=== PATIENT | female | born 1980 | race Caucasian/White ===

== ENCOUNTER 2016-10-17 07:52 | Emergency (ER) | payer MEDICAID, OTHER ==
[2016-10-17] MEDS ORDERED: IPRATROPIUM/ALBUTEROL 0.5-2.5 MG/3 ML AMPUL NEB ONE ×2 (08:19→08:24)
[2016-10-17] MEDS ORDERED: ALBUTEROL SULFATE 0.083% NEB 2.5 MG/3 ML AMPUL NEB SCH (08:39)
--- NOTE | 2016-10-17 09:22 | ER Document Report ---
ED General - General Chief Complaint: Cold Symptoms Stated Complaint: SHORTNESS OF BREATH TRAVEL OUTSIDE OF THE [place] IN LAST 30 DAYS: No - Related Data Allergies/Adverse Reactions: morphine Adverse Reaction (Verified 10/17/16 08:28) nausea/vomiting Past Medical History - Social History Smoking Status: Current Every Day Smoker Chew tobacco use (# tins/day): Yes Family History: Reviewed & Not Pertinent Patient has suicidal ideation: No Patient has homicidal ideation: No Pulmonary Medical History: Reports: Hx Asthma Renal/ Medical History: Denies: Hx Peritoneal Dialysis Psychiatric Medical History: Reports: Hx Anxiety Past Surgical History: Reports: Hx Mastectomy - double - Immunizations Immunizations up to date: Yes Physical Exam - Vital signs Vitals: Temp Pulse Resp BP Pulse Ox 98.5 F 114 H 22 H 96/56 L 93 10/17/16 07:56 10/17/16 07:56 10/17/16 07:56 10/17/16 07:56 10/17/16 07:56 Course - Re-evaluation Re-evalutation: 10/17/16 09:19 Patient requests refill of her albuterol, I will dc her home at this time since she feels much better and is in no distress After performing a Medical Screening Examination, I estimate there is LOW risk for ACUTE CORONARY SYNDROME, RESPIRATORY FAILURE, SEPSIS OR MENINGITIS, thus I consider the discharge disposition reasonable. The patient and I have discussed the diagnosis and risks, and we agree with discharging home with close follow- up. We also discussed returning to the Emergency Department immediately if new or worsening symptoms occur. We have discussed the symptoms which are most concerning (e.g., changing or worsening pain, trouble swallowing or breathing, neck stiffness, fever) that necessitate immediate return. - Vital Signs Vital signs: Temp Pulse Resp BP Pulse Ox 98.5 F 94 18 99/61 L 95 10/17/16 07:56 10/17/16 09:26 10/17/16 09:26 10/17/16 09:26 10/17/16 09:26 - Diagnostic Test Radiology reviewed: Image reviewed, Reports reviewed Discharge - Discharge Clinical Impression: SOB (shortness of breath) Asthma Qualifiers: Asthma severity: mild intermittent Asthma complication type: with acute exacerbation Qualified Code(s): J45.21 - Mild intermittent asthma with (acute) exacerbation Condition: Stable Disposition: HOME, SELF-CARE Instructions: Asthma (OM) Prescriptions: Albuterol Sulfate [Albuterol Sulfate 2.5mg/3 mL] 2.5 mg IH Q4 40 Days Ipratropium/Albuterol Sulfate [Duoneb 3 ml Ampul] 3 ml NEB RTQ8 #30 vial.neb Prednisone [Deltasone 20 mg Tablet] 3 tab PO DAILY 5 Days Forms: Return to Work Referrals: RYAN JAMISON, [facility] [Primary Care Provider] - Follow up in 3-5 days
[2016-10-17 09:27] VITALS: BP 99/61
== END 2016-10-17 09:33 | disposition home or self-care (01) ==
LOC: ER 07:52
DX: J45.21 Mild intermittent asthma with (acute) exacerbation (principal); J44.9 Chronic obstructive pulmonary disease, unspecified; R06.02 Shortness of breath; R05 Cough; F17.200 Nicotine dependence, unspecified, uncomplicated
CPT/HCPCS: 94640; 99283; 71010; J7620

== ENCOUNTER 2016-10-17 14:06 | Emergency (ER) | payer MEDICAID ==
[2016-10-17] MEDS ORDERED: NORMAL SALINE 1000 ML 1,000 ML IV ONE (14:38)
[2016-10-17] MEDS ORDERED: ONDANSETRON HCL INJ/PF 4 MG/2 ML SDV IV ONE (14:38)
[2016-10-17] MEDS: ALBUTEROL SULFATE 0.083% NEB 2.5 MG/3 ML AMPUL NEB SCH ×2 (14:49→15:13)
--- NOTE | 2016-10-17 15:11 | ER Document Report ---
ED General - General Chief Complaint: Asthma Exacerbation Stated Complaint: DIFFICULTY BREATHIN Time seen by provider: 14:30 Mode of Arrival: Medic Information source: Patient Notes: 28-year-old female with 3 day history of nonproductive cough and worsening wheezing that he says is typical for her asthma. She reports sharp bilateral mid back pain that she thinks is related to her breathing. Patient seen in her from earlier today to with nebulizers with improvement in discharge with saturation of 95% on room air. Patient was given a prescription for steroids for prior to filling it says her breathing became much worse again she was found by EMS personnel have a saturation of 80% on room air. She reports feeling somewhat better now after additional nebulizer treatment and IV steroids in route to the breathing doesn't feel back to normal. She thinks she may have been intubated once as a child for asthma and has had prior admissions for asthma but none recently. She reports intermittent nausea but denies vomiting, diarrhea, abdominal pain, or sore throat. She does report right ear pain for the past 2 days. Physical Exam: General: Alert, moderately store Tory distress tachypnea, HEENT: Normocephalic. Atraumatic. PERRLA. Extraocular movements intact. Panic membranes and canals clear Oropharynx clear. Neck: Supple. Non-tender. Respiratory: Moderate respiratory distress. Wheezes throughout all lung herbert breath sounds equal tachypnea minimal accessory muscle use Cardiovascular: Regular rate and rhythm. Abdominal: Normal Inspection. Soft, non-tender. No distension. Normal Bowel Sounds. Back: Non-tender. No deformity or step off. Extremities: Moves all four extremities. Upper extremities: Normal inspection. Non-tender. Normal color. Normal ROM. Normal temperature. Lower extremities: Normal inspection. Non-tender. No edema. Normal color. Normal ROM. Normal temperature. Neurological the clear mentation normal moves all extremities well Psychological: Normal affect. Normal Mood. Skin: Warm. Dry. Normal color. TRAVEL OUTSIDE OF THE [place] IN LAST 30 DAYS: No - Related Data Allergies/Adverse Reactions: morphine Adverse Reaction (Verified 10/17/16 08:28) nausea/vomiting Past Medical History - Social History Smoking Status: Current Some Day Smoker Family History: Other - Asthma Pulmonary Medical History: Reports: Hx Asthma Renal/ Medical History: Denies: Hx Peritoneal Dialysis Psychiatric Medical History: Reports: Hx Anxiety Past Surgical History: Reports: Hx Mastectomy - double - Immunizations Immunizations up to date: Yes Review of Systems - Review of Systems Constitutional: See HPI EENT: See HPI Cardiovascular: See HPI Respiratory: See HPI Gastrointestinal: denies: Abdominal pain, Diarrhea, Vomiting Genitourinary: denies: Burning, Dysuria Female Genitourinary: denies: Musculoskeletal: See HPI Skin: denies: Rash Hematologic/Lymphatic: denies: Enlarged lymph nodes Neurological/Psychological: denies: Weakness, Numbness Physical Exam - Vital signs Vitals: Resp Pulse Ox 18 97 10/17/16 14:34 10/17/16 14:34 Course - Re-evaluation Re-evalutation: 10/17/16 18:42 After aggressive treatment for patient is [place] difficulty reevaluation shows her to have clear lung herbert bilaterally with heart rate of 110. Patient or has a prescription for prednisone and albuterol. She reports her nebulizer machine was broken and she did not realize that this morning which is why she developed some which respiratory difficulty. We'll provide her with a nebulizer prescription. She also requests pulmonology referral and she will be provided with that. She was also noted CT scan of a 5 mm pulmonary nodule on the right and she is informed of that and that it will need follow-up in 6 months. She [facility] Patient had nonspecific ST changes on her EKG but I don't believe that represents any cardiac problem requiring admission. - Vital Signs Vital signs: Temp Pulse Resp BP Pulse Ox 98.5 F 120 H 20 107/64 96 10/17/16 14:50 10/17/16 14:50 10/17/16 18:01 10/17/16 18:01 10/17/16 18:01 - Laboratory Result Diagrams: 10/17/16 15:15 10/17/16 15:15 Laboratory results interpreted by me: 10/17/16 10/17/16 10/17/16 15:15 15:15 15:15 Hct 35.0 L Seg Neutrophils % 84.7 H Lymphocytes % 11.2 L Absolute Neutrophils 8.7 H D-Dimer 0.84 H Potassium 3.5 L Glucose 146 H AST 38 H - Diagnostic Test Radiology reviewed: Image reviewed, Reports reviewed - EKG Interpretation by Me Additional EKG results interpreted by me: 10/17/16 15:11 EKG reviewed by myself shows sinus tachycardia [address] changes Discharge - Discharge Clinical Impression: Pulmonary nodule, right Acute asthma exacerbation Qualifiers: Asthma severity: unspecified severity Qualified Code(s): J45.901 - Unspecified asthma with (acute) exacerbation Condition: Stable Disposition: HOME, SELF-CARE Additional Instructions: Pulmonology MD Edmond Cabrera MD [address] Asthma You have been diagnosed as having asthma. This is a condition where there is episodic tightness in the bronchial tubes. Allergies, infections, and polluted or cold air may be contributing factors. Emergency treatment of a severe asthma attack may include adrenaline shots , or bronchodilator aerosol. You may feel lightheaded, have a decreased exercise tolerance and a rapid pulse for an hour or two. Rest and get plenty of fluids. Home treatment of asthma requires bronchodilator drugs. These can be administered by injection, inhalation, or by mouth. Antibiotics and corticosteroids may be required for some patients. You should avoid chemical fumes, dusts, pollens, and exercising in very cold or dry air. If you smoke, stop!! If you develop a fever, increased wheezing, chest pain, or severe shortness of breath, you should contact the doctor immediately You have a 5 mm nodule in your right lung seen on CT scan. This needs to be checked with a repeat chest x-ray in 6 months. Prescriptions: Nebulizer [Nebulizer Machine] 1 each ASDIR PRN #1 kit PRN Reason: Referrals: [facility] [Provider Group] - 10/18/16
[2016-10-17] MEDS: MAGNESIUM SULFATE/D5W 100 ML IV SCH ×2 (15:14→18:01)
[2016-10-17 15:32] LABS: ABSOLUTE LYMPHOCYTES (AUTO) 1.1 10^3/uL (0.5-4.7); ABSOLUTE MONOCYTES (AUTO) 0.4 10^3/uL (0.1-1.4); ABSOLUTE NEUT (AUTO) 8.7 10^3/uL (1.7-8.2); BASOPHILS % (AUTO) 0.2 % (0-2); LYMPHOCYTES % (AUTO) 11.2 % (13-45); MEAN CORPUSCULAR HGB CONC 34.3 g/dL (32.0-36.0); MEAN CORPUSCULAR VOLUME 90 fl (80-97); MONOCYTES % (AUTO) 3.9 % (3-13); RED BLOOD COUNT 3.87 10^6/uL (3.72-5.28); RED CELL DISTRIBUTION WIDTH 13.9 % (11.5-14.0); SEGMENTED NEUTROPHILS % (AUTO) 84.7 % (42-78); WHITE BLOOD COUNT 10.2 10^3/uL (4.0-10.5)
[2016-10-17 15:50] LABS: ALANINE AMINOTRANSFERASE 38 U/L (9-52); ALBUMIN 4.2 g/dL (3.5-5.0); ALKALINE PHOSPHATASE 94 U/L (38-126); ANION GAP 13 (5-19); ASPARTATE AMINO TRANSFERASE 38 U/L (14-36); BILIRUBIN,TOTAL 0.4 mg/dL (0.2-1.3); BLOOD UREA NITROGEN 9 mg/dL (7-20); CARBON DIOXIDE 22 mmol/L (22-30); CHLORIDE 105 mmol/L (98-107); CREATINE KINASE 60 U/L (30-135); CREATININE RESULT 0.62 mg/dL (0.52-1.25); GLUCOSE 146 mg/dL (75-110); POTASSIUM 3.5 mmol/L (3.6-5.0); SODIUM 139.9 mmol/L (137-145)
[2016-10-17 16:04] LABS: CREATINE KINASE MB < 0.22 ng/mL (<4.55); TROPONIN I < 0.012 ng/mL
[2016-10-17] MEDS ORDERED: IPRATROPIUM/ALBUTEROL 0.5-2.5 MG/3 ML AMPUL NEB ONE (18:09)
[2016-10-17 20:04] VITALS: BP 97/61
--- NOTE | 2016-10-17 22:03 | EKG REPORT ---
SEVERITY:- OTHERWISE NORMAL ECG - SINUS TACHYCARDIA : Confirmed by: Alyx Sauer MD 17-Oct-2016 22:02:59
[2016-10-17] MEDS ORDERED: MAGNESIUM SULFATE/D5W 2 GM/200 ML RTUPB IV ONE (22:05)
[2016-10-17] MEDS ORDERED: METHYLPREDNISOLONE INJ 125 MG/2 ML SDV ONE (22:05)
--- NOTE | 2016-10-19 08:19 | EKG REPORT ---
SEVERITY:- ABNORMAL ECG - SINUS TACHYCARDIA BORDERLINE RIGHT AXIS DEVIATION LOW VOLTAGE IN FRONTAL LEADS NONSPECIFIC REPOL ABNORMALITY, DIFFUSE LEADS : Confirmed by: Alyx Sauer MD 19-Oct-2016 08:18:49
== END 2016-10-17 20:04 | disposition home or self-care (01) ==
LOC: ER 14:06
DX: J45.901 Unspecified asthma with (acute) exacerbation (principal); R91.1 Solitary pulmonary nodule; R05 Cough; M54.89 Other dorsalgia; R11.0 Nausea; H92.01 Otalgia, right ear; R00.0 Tachycardia, unspecified; F17.200 Nicotine dependence, unspecified, uncomplicated
CPT/HCPCS: 93005; 94640 ×2; 99285; 96375; 96365; 96366; 36415; 82553; 82550; 84703; 85025; 80053; 84484; 85379; 71275; 93010; J3475; J2405; J7030; J7620

== ENCOUNTER 2016-10-17 21:50 | Inpatient (IN) | payer MEDICAID ==
[2016-10-17] MEDS ORDERED: METHYLPREDNISOLONE INJ 125 MG/2 ML SDV IV ONE (21:51)
[2016-10-17] MEDS ORDERED: IPRATROPIUM/ALBUTEROL 0.5-2.5 MG/3 ML AMPUL NEB ONE (21:51)
--- NOTE | 2016-10-17 21:54 | ER Document Report ---
ED Medical Screen (RME) - General Stated Complaint: DIFFICULTY BREATHING Mode of Arrival: Wheelchair Information source: Patient Notes: Patient presents with labored respirations complain of asthma attack. Patient states she was seen earlier today for same symptoms. Patient with tight wheezing bilaterally, patient tachypnea, with labored respirations. hx: Asthma I have greeted and performed a rapid initial assessment of this patient. A comprehensive ED assessment and evaluation of the patient, analysis of test results and completion of the medical decision making process will be conducted by additional ED providers. TRAVEL OUTSIDE OF THE [place] IN LAST 30 DAYS: No - Related Data Allergies/Adverse Reactions: morphine Adverse Reaction (Verified 10/17/16 08:28) nausea/vomiting Past Medical History Pulmonary Medical History: Reports: Hx Asthma Renal/ Medical History: Denies: Hx Peritoneal Dialysis Psychiatric Medical History: Reports: Hx Anxiety Past Surgical History: Reports: Hx Mastectomy - double - Immunizations Immunizations up to date: Yes Physical Exam - Respiratory Respiratory status: Labored, Tachypnea Breath sounds: Nonproductive cough, Wheezing Course - Re-evaluation Re-evalutation: 10/17/16 21:53 microbial specialist advised of status, patient brought back to room directly.
[2016-10-17] MEDS ORDERED: ALBUTEROL SULFATE 0.083% NEB 2.5 MG/3 ML AMPUL NEB SCH (22:07)
[2016-10-17 22:26] LABS: HEMATOCRIT 35.4 % (36.0-47.0); HEMOGLOBIN 12.2 g/dL (12.0-15.5); HGB HCT DIFFERENCE 1.2; MEAN CORPUSCULAR HEMOGLOBIN 31.3 pg (27.0-33.4); MEAN CORPUSCULAR HGB CONC 34.5 g/dL (32.0-36.0); MEAN CORPUSCULAR VOLUME 91 fl (80-97); RED CELL DISTRIBUTION WIDTH 14.5 % (11.5-14.0); WHITE BLOOD COUNT 9.2 10^3/uL (4.0-10.5)
--- NOTE | 2016-10-17 22:45 | ER Document Report ---
ED Respiratory Problem - General Mode of Arrival: Wheelchair Information source: Patient TRAVEL OUTSIDE OF THE [place] IN LAST 30 DAYS: No - HPI Patient complains to provider of: Short of breath Associated symptoms: Other - See above <CHANTELLE BLANDON - Last Filed: 10/17/16 23:58> <SUZY CLEMENT - Last Filed: 10/18/16 01:35> - General Chief Complaint: Breathing Difficulty Stated Complaint: DIFFICULTY BREATHING Notes: Patient is a 36 year old female, with a past medical history including asthma, who presents to the emergency department with her complaining of difficulty breathing. Patient reports that she started having shortness of breath 2 days ago and has been worsening. Patient has been using her regular Albuterol and Nebulizer treatments at home with no relief. Patient reports that her last doctors visit was 6 months ago and that she was admitted 1 to 2 times as a child. Per patient has been more restless at night. Patient has a history of anxiety and takes 3 1mg tables of Ativan per day, patient reports she has taken one dose today. Patient states that this could be related to her anxiety. Patient was seen at this facility twice today for the same complaint. (CHANTELLE BLANDON) - Related Data Allergies/Adverse Reactions: morphine Adverse Reaction (Verified 10/17/16 08:28) nausea/vomiting Past Medical History - General Information source: Patient - Social History Smoking Status: Current Some Day Smoker Family History: Reviewed & Not Pertinent, Other - Asthma Pulmonary Medical History: Reports: Hx Asthma Psychiatric Medical History: Reports: Hx Anxiety Past Surgical History: Reports: Hx Mastectomy - double - Immunizations Immunizations up to date: Yes <CHANTELLE BLANDON - Last Filed: 10/17/16 23:58> Review of Systems - Review of Systems Constitutional: No symptoms reported EENT: No symptoms reported Cardiovascular: No symptoms reported Respiratory: See HPI, Short of breath Gastrointestinal: No symptoms reported Genitourinary: No symptoms reported Female Genitourinary: No symptoms reported Musculoskeletal: No symptoms reported Skin: No symptoms reported Hematologic/Lymphatic: No symptoms reported Neurological/Psychological: No symptoms reported -: Yes All other systems reviewed and negative <CHANTELLE BLANDON - Last Filed: 10/17/16 23:58> Physical Exam - Vital signs Interpretation: Normal - General General appearance: Alert - HEENT Head: Normocephalic, Atraumatic - Respiratory Respiratory status: No respiratory distress Chest status: Nontender Breath sounds: Decreased air movement, Wheezing - tight expiratory wheezes Chest palpation: Normal - Cardiovascular Rhythm: Regular Heart sounds: Normal auscultation Murmur: No - Back Back: Normal, Nontender - Extremities General upper extremity: Normal inspection General lower extremity: Normal inspection - Neurological Neuro grossly intact: Yes Cognition: Normal Orientation: AAOx4 Milena Coma Scale Eye Opening: Spontaneous Milena Coma Scale Verbal: Oriented Milena Coma Scale Motor: Obeys Commands Milena Coma Scale Total: 15 Speech: Normal - Psychological Associated symptoms: Normal affect, Normal mood - Skin Skin Temperature: Warm Skin Moisture: Dry Skin Color: Normal <CHANTELLE BLANDON - Last Filed: 10/17/16 23:58> Course - Laboratory Result Diagrams: 10/17/16 22:01 10/17/16 22:54 <CHANTELLE BLANDON - Last Filed: 10/17/16 23:58> - Laboratory Result Diagrams: 10/17/16 22:01 10/17/16 22:54 <SUZY CLEMENT - Last Filed: 10/18/16 01:35> - Re-evaluation Re-evalutation: 10/17/16 23:59 I personally performed the services described in the documentation, reviewed and edited the documentation which was dictated to my scribe in my presence, and it accurately records my words and actions. presents emergency Department with difficulty breathing wheezing history of asthma. Patient is actually been seen and evaluated and discharged twice today. She was initially seen earlier this morning diagnosed with asthma exacerbation cold symptoms. She was sent home on albuterol. She said her nebulizer machine was broken at home. She came back and was again reassessed note shows that per EMS her O2 sat was 80% patient was aggressively treated here with Solu-Medrol magnesium and breathing treatments at which her symptoms resolved and she was discharged from the department they stated they got home doing okay for a few hours and then it recurred. Patient presents to the triage area and severe shortness of breath tight with expiratory wheezing and O2 sat of 88% on room air. Patient was given albuterol Atrovent here does not need repeat dosing of Solu-Medrol on my examination resolved wheezing and respiratory distress after one breathing treatment reassess her multiple times no acute respiratory distress resting comfortably. Pulse oxing well. Patient third visit to the ER asthma exacerbation used to be admitted for observation. Contacted Dr. Bassett at [phone] he stated he is unable to take any new patients. Dr. Bassett contacted me back at [phone] accepting the patient telemetry admission 10/18/16 01:34 (SUZY CLEMENT) - Vital Signs Vital signs: Temp Pulse Resp BP Pulse Ox 28 H 102/79 96 10/18/16 00:00 10/17/16 22:02 10/18/16 00:00 - Laboratory Laboratory results interpreted by me: 10/17/16 10/17/16 10/17/16 22:01 22:25 22:54 Hct 35.4 L RDW 14.5 H Seg Neuts % (Manual) 95 H Lymphocytes % (Manual) 5 L Monocytes % (Manual) 0 L Abs Neuts (Manual) 8.7 H Abs Monocytes (Manual) 0.0 L ABG pO2 64.6 L ABG O2 Saturation 92.4 L Carbon Dioxide 19 L Glucose 179 H AST 54 H (SUZY CLEMENT) - EKG Interpretation by Me Additional EKG results interpreted by me: 10/18/16 00:02 EKG sinus tachycardia [address] segment elevation or depression (SUZY CLEMENT) Critical Care Note - Critical Care Note Total time excluding time spent on procedures (mins): 45 <SUZY CLEMENT - Last Filed: 10/18/16 01:35> Discharge <CHANTELLE BLANDON - Last Filed: 10/17/16 23:58> - Discharge Admitting Provider: Hospitalist Unit Admitted: Telemetry <SUZY CLEMENT - Last Filed: 10/18/16 01:35> - Discharge Clinical Impression: Exacerbation of asthma Condition: Stable Disposition: ADMITTED INPATIENT Scribe Documentation - Scribe Written by Mariana:: mariana Bender, 10/17/16, [id number] acting as scribe for :: [place] <CHANTELLE BLANDON - Last Filed: 10/17/16 23:58>
[2016-10-17 22:51] LABS: ARTERIAL BLOOD BASE EXCESS -4.2 mmol/L; ARTERIAL BLOOD O2 SATURATION 92.4 % (94-98)
[2016-10-17 22:52] LABS: BASOPHILS % (MANUAL) 0 % (0-2); EOSINOPHILS % (MANUAL) 0 % (0-6); LYMPHOCYTES % (MANUAL) 5 % (13-45); TOTAL CELLS COUNTED 100
[2016-10-17 22:54] LABS: ANISOCYTOSIS SLIGHT; BURR CELLS SLIGHT; OVALOCYTES SLIGHT; POIKILOCYTOSIS SLIGHT
[2016-10-17 23:43] LABS: ALANINE AMINOTRANSFERASE 51 U/L (9-52); ALBUMIN 3.7 g/dL (3.5-5.0); ALKALINE PHOSPHATASE 90 U/L (38-126); ANION GAP 14 (5-19); ASPARTATE AMINO TRANSFERASE 54 U/L (14-36); BILIRUBIN,TOTAL 0.4 mg/dL (0.2-1.3); BLOOD UREA NITROGEN 7 mg/dL (7-20); CALCIUM 8.7 mg/dL (8.4-10.2); CARBON DIOXIDE 19 mmol/L (22-30); CHLORIDE 107 mmol/L (98-107); CREATINE KINASE 85 U/L (30-135); CREATININE RESULT 0.59 mg/dL (0.52-1.25); GLUCOSE 179 mg/dL (75-110); POTASSIUM 4.2 mmol/L (3.6-5.0); SODIUM 139.8 mmol/L (137-145); TOTAL PROTEIN 7.2 g/dL (6.3-8.2)
[2016-10-17 23:53] LABS: CREATINE KINASE MB 0.53 ng/mL (<4.55)
[2016-10-17 23:54] LABS: TROPONIN I < 0.012 ng/mL
[2016-10-18] MEDS ORDERED: ACETAMINOPHEN 325 MG TABLET PO PRN (02:47)
[2016-10-18] MEDS ORDERED: NICOTINE 7 MG/24 HR PATCH.TD24 TD PRN (03:06)
--- NOTE | 2016-10-18 03:06 | PDOC H&P ---
History of Present Illness Admission Date/PCP: 10/18/16 02:54 [facility] first urgent care Patient complains of: Difficulty breathing. History of Present Illness: JOEY OG is a 36 year old female with underlying asthma, pack of cigarettes every week, who presents to the emergency room for her third visit in approximately 12 hours, according to , who is present at her side with her approval. Describes a 2 day history of slowly progressive difficulty breathing, despite albuterol nebulizer treatments at home. Reportedly recovered quite nicely during her first 2 emergency room visits, but within several hours after her second visit, breathing difficulty recurred, with hypoxia reported on room air. She's had a dry cough but no nausea and vomiting. Possible fever, but not completely certain. No chills. Mild dysuria. No diarrhea. Chest and abdominal pain only with a cough. No flu vaccination this year. Only one prior intubation for respiratory difficulty, as a child. Patient has been discussed with emergency room physician who evaluated the patient. S/P splenectomy for ITP. Laboratory results are listed in [facility] and are reviewed. X-ray summary results are listed below, with full report(s) reviewed. . EKG reviewed. No prior EKG available for comparison. Social history/personal habits: . 3 children. Retired employee. One pack of cigarettes per week. Rare alcohol. No illicit drug use. Allergies/adverse reactions are listed in [facility] and are reviewed. No problems with oxycodone. Home medications are reviewed by discussion with patient and are to be reconciled by nursing staff in [facility]. Home medications initially autopopulated into [facility] may not accurately reflect patient's true medications, dosages, and/or frequencies. REVIEW OF SYSTEMS: Constitutional: See history and present illness. Eyes: No current vision complaints. ENT: No swallowing problems or complaints. No hearing problems or complaints. Pulmonary: See history and present illness. Cardiovascular: See history and present illness. Gastrointestinal: No current complaints, including nausea or vomiting. Skin: No current complaints, including rashes. Hematologic: Easy bruising. Neurologic: No current complaints, including numbness or tingling. Musculoskeletal: No current complaints, including painful joints. Psychiatric: Mild Anxiety Endocrine: No current complaints, including polyuria. Genitourinary: No current complaints, including dysuria. PHYSICAL EXAMINATION: 5 feet 2 inches tall. 52.2 kg. BMI 21 kg/m. 91% on room air. Respirations are 20 and unlabored. Blood pressure 97/50. Pulse 120 and regular. Female emergency room nurse Rosi is present. Skin is warm and dry. No grossly obvious evidence of rash in areas of skin examined. No subcutaneous nodules palpated. ENT: Hearing grossly normal to normal conversation. Tongue midline on protrusion pink and slightly tacky. Eyes: No scleral icterus. Pupils equal and reactive to light at 4 mm. [place]pelar conjunctivae. Neck is supple and nontender to gentle active range of motion and palpation. Midline trachea. No palpable thyroid nodule mass enlargement or tenderness. Lymphatic: No palpable cervical or clavicular nodes. Psychiatric: Reasonable insight into acute and chronic medical issues. Oriented to time location and why here. Lungs: Auscultation reveals equal breath sounds bilaterally. No use of accessory respiratory muscles. Faint brief early inspiratory and expiratory wheezing, mostly in the upper half of each hemithorax. Occasional dry cough. Cardiovascular: Heart regular rate and rhythm, without gallop murmur or rub. No carotid or abdominal aortic bruits. No ankle or pedal edema. Faintly palpable dorsalis pedis pulses. Abdomen: soft, slightly, distended nontender with positive bowel sounds. Unable to adequately evaluate abdomen for masses or organomegaly due to distention. Extremities: Feet are warm and dry. No calf tenderness to compression. No grossly obvious visual evidence of calf swelling. Gentle manipulation of lower extremities fails to reveal any obvious evidence of injury or instability to knees hips or ankles. Neurologic: Moves upper extremities grossly normally. Patellar reflexes absent. Absent Babinski. Light touch is intact at feet. Dorsiflexion and plantarflexion of feet 5 / 5 and symmetric. Past Medical History Cardiac Medical History: Reports: Hyperlipidema - History of Denies: Congestive Heart Failure, DVT, Myocardial Infarction, Hypertension, Pulmonary Embolism Pulmonary Medical History: Reports: Asthma EENT Medical History: Denies: Eyes, Ears, Throat Neurological Medical History: Denies: Hemorrhagic CVA, Ischemic CVA, Seizures Endocrine Medical History: Denies: Diabetes Mellitus Type 1, Diabetes Mellitus Type 2, Hyperthyroidism, Hypothyroidism Renal/ Medical History: Reports: Other - Occasional urinary tract infection. GI Medical History: Denies: Cirrhosis, Gastroesophageal Reflux Disease, Hepatitis, Peptic Ulcer Disease Musculoskeltal Medical History: Denies: Arthritis Skin Medical History: Reports: None Denies: Eczema, Psoriasis Psychiatric Medical History: Reports: General Anxiety Disorder, Tobacco Dependency Denies: Alcohol Dependency, Depression, Substance Abuse Hematology: Reports: Other - History of ITP, status post splenectomy for same. Infectious Medical History: Denies: Hepatitis B, Hepatitis C Past Surgical History Past Surgical History: Reports: Mastectomy - double, Splenectomy - For ITP Social History Information Source: Patient, Emergency Med Personnel, [facility] Records Lives with: Spouse/Significant other Smoking Status: Current Some Day Smoker Frequency of Alcohol Use: Rare Drugs: None - Advance Directive Resuscitation Status: Full Code Surrogate healthcare decision maker:: Family History Family History: Reviewed & Not Pertinent, Other - Asthma Parental Family History Reviewed: Yes Children Family History Reviewed: Yes Sibling(s) Family History Reviewed.: Yes Medication/Allergy Home Medications: Albuterol Sulfate [Proair HFA Inhalation Aerosol 8.5 gm MDI] 2 puff IH Q4H PRN # 1 mdi 03/26/16 Nebulizer [Nebulizer Machine] 1 each MC ASDIR PRN #1 kit 10/17/16 Promethazine HCl 25 mg PO TIDP PRN 10/18/16 Acetaminophen [Tylenol 325 mg Tablet] 650 mg PO Q4HP PRN tablet 10/20/16 Albuterol Sulfate [Ventolin 0.083% Neb 2.5 mg/3 mL Ampul] 2.5 mg NEB RTQ4HP PRN vial.neb 10/20/16 Amox Tr/Potassium Clavulanate [Augmentin 400-57 mg/5 mL Suspension] 10 ml PO BID #20 dose 10/20/16 Ipratropium/Albuterol Sulfate [Duoneb 3 ml Ampul] 3 ml NEB RTQ8HP PRN #100 vial.neb 10/20/16 Lorazepam [Ativan 0.5 mg Tablet] 1 - 2 tab PO BIDP PRN #20 tablet 10/20/16 Mometasone/Formoterol [Dulera 200 Mcg/5 Mcg Inhaler] 13 gm IH BID #1 hfa.aer.ad 10/20/16 Prednisone [Deltasone 20 mg Tablet] 3 tab PO DAILY 5 Days 10/20/16 Allergies/Adverse Reactions: morphine Adverse Reaction (Verified 10/17/16 08:28) nausea/vomiting peanut butter Adverse Reaction (Uncoded 10/18/16 06:52) Swelling of Throat Physical Exam Vital Signs: Temp Pulse Resp BP Pulse Ox 99.1 F 28 H 102/79 96 10/18/16 02:48 10/18/16 00:00 10/17/16 22:02 10/18/16 00:00 Results Impressions: Chest X-Ray 10/17/16 21:52 IMPRESSION: NO ACUTE RADIOGRAPHIC FINDING IN THE CHEST. Assessment & Plan - Diagnosis (1) Acidosis Is this a current diagnosis for this admission?: YesPlan: Chem-7. (2) Acute asthma exacerbation Qualifiers: Asthma severity: moderate persistent Qualified Code(s): J45.41 - Moderate persistent asthma with (acute) exacerbation Is this a current diagnosis for this admission?: YesPlan: Patient will be admitted under asthma exacerbation protocol. Incentive spirometry twice a day. Scheduled DuoNeb's. PRN albuterol nebs Solu-Medrol Prevacid for gastritis prophylaxis. I strongly encouraged patient to notify staff should patient feel that respiratory status is worsening. Patient is a full code. I have strongly encouraged patient not to get out of bed without notifying staff , , to avoid a fall with injury. Knee high SCDs for DVT prophylaxis, along with subcutaneous Lovenox Impression and plans were discussed with patient and , both of whom concur. Time spent in evaluation and management of patient: 65 minutes. (3) Elevated LFTs Is this a current diagnosis for this admission?: YesPlan: Hepatic profile. (4) Tobacco dependency Is this a current diagnosis for this admission?: YesPlan: When necessary nicotine patch. (5) History of ITP Is this a current diagnosis for this admission?: Yes (6) H/O splenectomy Is this a current diagnosis for this admission?: YesPlan: Antibiotic coverage. - Inpatient Certification Based on my medical assessment, after consideration of the patient's comorbidities, presenting symptoms, or acuity I expect that the services needed warrant INPATIENT care.: Yes I certify that my determination is in accordance with my understanding of Medicare's requirements for reasonable and necessary INPATIENT services [42 CFR 412.3e].: Yes Medical Necessity: Need Close Monitoring Due to Risk of Patient Decompensation, Need For Continuous Telemetry Monitoring, Need for Nebulizer Therapy and Monitoring of Response, Need for IV Antibiotics, Risk of Complication if Not Cared For in Hospital, Risk of Diagnosis Which Will Require Inpatient Eval/Care/ Monitoring Post Hospital Care: D/C or Transfer Summary
[2016-10-18 03:48] LABS: ANION GAP 11 (5-19); BLOOD UREA NITROGEN 8 mg/dL (7-20); CALCIUM 9.1 mg/dL (8.4-10.2); CARBON DIOXIDE 22 mmol/L (22-30); CHLORIDE 108 mmol/L (98-107); CREATININE RESULT 0.58 mg/dL (0.52-1.25); GLUCOSE 175 mg/dL (75-110); POTASSIUM 4.7 mmol/L (3.6-5.0); SODIUM 140.5 mmol/L (137-145)
[2016-10-18 03:50] LABS: VENOUS BLOOD BASE EXCESS -2.9 mmol/L; VENOUS BLOOD HCO3 21.9 mmol/L (20-32); VENOUS BLOOD PCO2 38.4 mmHg (35-63); VENOUS BLOOD PH 7.37 (7.30-7.42)
[2016-10-18] MEDS: METHYLPREDNISOLONE INJ 40 MG/1 ML SDV IV SCH ×3 (06:09→22:19)
[2016-10-18] MEDS: ALBUTEROL SULFATE 0.083% NEB 2.5 MG/3 ML AMPUL NEB PRN ×3 (06:09→18:05)
[2016-10-18] MEDS: LANSOPRAZOLE 30 MG TAB.RAP.DR PO SCH ×2 (06:20→17:15)
[2016-10-18 06:56] LABS: APPEARANCE,URINE CLEAR; BILIRUBIN,URINE NEGATIVE (NEGATIVE); GLUCOSE, URINE 150 mg/dL (NEGATIVE); KETONES,URINE NEGATIVE (NEGATIVE); LEUKOCYTE ESTERASE,URINE NEGATIVE (NEGATIVE); NITRITE,URINE NEGATIVE (NEGATIVE); PROTEIN,URINE NEGATIVE (NEGATIVE); URINE SPECIFIC GRAVITY 1.013; UROBILINOGEN,URINE NEGATIVE mg/dL (<2.0)
[2016-10-18 08:01] LABS: HEMATOCRIT 34.5 % (36.0-47.0); HEMOGLOBIN 11.5 g/dL (12.0-15.5); MEAN CORPUSCULAR HEMOGLOBIN 30.5 pg (27.0-33.4); MEAN CORPUSCULAR HGB CONC 33.3 g/dL (32.0-36.0); MEAN CORPUSCULAR VOLUME 92 fl (80-97); RED BLOOD COUNT 3.77 10^6/uL (3.72-5.28); RED CELL DISTRIBUTION WIDTH 14.4 % (11.5-14.0); WHITE BLOOD COUNT 18.3 10^3/uL (4.0-10.5)
[2016-10-18 08:17] LABS: ALBUMIN 3.8 g/dL (3.5-5.0); BILIRUBIN,TOTAL 0.5 mg/dL (0.2-1.3); TOTAL PROTEIN 7.6 g/dL (6.3-8.2)
[2016-10-18 08:25] LABS: BAND NEUTROPHILS % (MANUAL) 1 % (3-5); BASOPHILS % (MANUAL) 0 % (0-2); EOSINOPHILS % (MANUAL) 0 % (0-6); LYMPHOCYTES % (MANUAL) 7 % (13-45); TOTAL CELLS COUNTED 100
[2016-10-18 08:26] LABS: ACANTHOCYTES SLIGHT; OVALOCYTES 1+; POIKILOCYTOSIS 1+; POLYCHROMASIA SLIGHT; SCHISTOCYTES SLIGHT; TOXIC GRANULATION SLIGHT
[2016-10-18] MEDS: IPRATROPIUM/ALBUTEROL 0.5-2.5 MG/3 ML AMPUL NEB SCH ×3 (08:30→20:42)
[2016-10-18] MEDS: NORMAL SALINE 1000 ML 1,000 ML IV PRN (08:57)
[2016-10-18] MEDS: ENOXAPARIN SODIUM INJ 40 MG/0.4 ML DISP.SYRIN SUBCUT SCH (08:58)
[2016-10-18] MEDS ORDERED: BACLOFEN 10 MG TABLET PO PRN (09:17)
[2016-10-18] MEDS ORDERED: PREDNISONE 20 MG TABLET PO SCH (10:00)
[2016-10-18] MEDS: GUAIFENESIN SYRP 200 MG/10 ML UDC PO PRN (10:27)
[2016-10-18] MEDS: KETOROLAC TROMETHAMINE INJ/PF 30 MG/1 ML SDV IV PRN (12:12)
--- NOTE | 2016-10-18 13:24 | PDOC PROGRESS REPORT ---
Subjective Progress Note for:: 10/18/16 Subjective:: Reason for visit: Called to bedside to evaluate patient's flank pain; admitted for COPD exacerbation Hospital course: Her H&P "JOEY OG is a 36 year old female with underlying asthma, pack of cigarettes every week, who presents to the emergency room for her third visit in approximately 12 hours, according to , who is present at her side with her approval. Describes a 2 day history of slowly progressive difficulty breathing, despite albuterol nebulizer treatments at home. Reportedly recovered quite nicely during her first 2 emergency room visits, but within several hours after her second visit, breathing difficulty recurred, with O2 saturation was on room air. She's had a dry cough but no nausea and vomiting. Possible fever, but not completely certain. No chills. Mild dysuria. No diarrhea. Chest and abdominal pain only with a cough. No flu vaccination this year. Only one prior intubation for respiratory difficulty, as a child." Patient underwent CT of the chest that showed no evidence of pulmonary emboli and by my interpretation evidence for centrilobular emphysema and air trapping but no focal airspace disease; incidental note is made of a 5 mm right upper lobe pulmonary nodule. Incidentally she is asplenic. Subjective: Patient is now reporting intractable, intense right flank pain described as sharp stabbing burning unbearable pain. Radiates to the left and down into her buttocks. Worse with certain positions, improved by lying on her left side, there is no associated dysuria, fever, chills, nausea or vomiting. She denies hematuria or prior history of renal stones. She states this is an old familiar pain for the last 2 years and it is usually acutely worsened when she is ill. She freely admits to high anxiety for equally exacerbating her pains. ROS: per HPI plus a total of 10 systems reviewed, pertinent positives and negatives noted above, remaining systems negative. Physical Exam Vital Signs: Temp Pulse Resp BP Pulse Ox 98.5 F 114 H 20 100/55 L 98 10/18/16 11:53 10/18/16 12:08 10/18/16 12:08 10/18/16 11:53 10/18/16 11:53 Intake & Output 10/17/16 10/18/16 10/19/16 06:59 06:59 06:59 Weight 50.9 kg EXAM GENERAL: Mild distress from her pain; well developed, thin and chronically ill- appearing; no obese; alert and oriented to person, place, time, situation HEENT: normocephalic, atraumatic; no conjunctival injection, no scleral icterus ; oral mucosa dry; extremely poor dentition and active gingivitis similar to that commonly found in methamphetamine addicts RESPIRATORY: no accessory muscle use, no increased WOB, good air entry bilaterally; faint right-sided wheezes, but no rales or rhonchi; no inspiratory crackles CARDIO: no JVD; RRR; no systolic murmur; no tachycardia GI: soft; nondistended; normal bowel sounds; no hepato spleno megaly; no rebound, rigidity, guarding VASCULAR: no carotid bruit; no abdominal bruit; no pallor; 2+ radial, DP pulse ; normal capillary refill EXTREMITIES: no calf tender; no palpable cords in calf; no clubbing, cyanosis , pedal edema PSYCH: normal affect, normal mood SKIN: warm; moist; no petechiae; no telengectasias; no jaundice; no rash MSK: Very mild tenderness to palpation over the paraspinal muscles right greater than left with the right muscle seemingly and spasm; no CVA tenderness in fact she states that maneuver actually improves her discomfort. No overlying swelling, erythema, edema or ecchymosis. Results Laboratory Results: 10/18/16 07:44 10/18/16 03:27 10/18/16 10/18/16 10/18/16 03:27 03:27 06:33 WBC RBC Hgb Hct MCV MCH MCHC RDW Plt Count Seg Neutrophils % Lymphocytes % Monocytes % Eosinophils % Basophils % Absolute Neutrophils Absolute Lymphocytes Absolute Monocytes Absolute Eosinophils Absolute Basophils VBG pH 7.37 VBG pCO2 38.4 VBG HCO3 21.9 VBG Base Excess -2.9 Sodium 140.5 Potassium 4.7 Chloride 108 H Carbon Dioxide 22 Anion Gap 11 BUN 8 Creatinine 0.58 Est GFR ( Amer) > 60 Est GFR (Non-Af Amer) > 60 Glucose 175 H Calcium 9.1 Total Bilirubin AST ALT Alkaline Phosphatase Total Protein Albumin Urine Color YELLOW Urine Appearance CLEAR Urine pH 6.0 Ur Specific [place] 1.013 Urine Protein NEGATIVE Urine Glucose (UA) 150 H Urine Ketones NEGATIVE Urine Blood SMALL H Urine Nitrite NEGATIVE Ur Leukocyte Esterase NEGATIVE Urine WBC (Auto) 1 Urine RBC (Auto) 2 02/22/17 02/22/17 07:44 07:44 WBC 18.3 H RBC 3.77 Hgb 11.5 L Hct 34.5 L MCV 92 MCH 30.5 MCHC 33.3 RDW 14.4 H Plt Count 413 Seg Neutrophils % Not Reportable Lymphocytes % Not Reportable Monocytes % Not Reportable Eosinophils % Not Reportable Basophils % Not Reportable Absolute Neutrophils Not Reportable Absolute Lymphocytes Not Reportable Absolute Monocytes Not Reportable Absolute Eosinophils Not Reportable Absolute Basophils Not Reportable VBG pH VBG pCO2 VBG HCO3 VBG Base Excess Sodium Potassium Chloride Carbon Dioxide Anion Gap BUN Creatinine Est GFR ( Amer) Est GFR (Non-Af Amer) Glucose Calcium Total Bilirubin 0.5 AST 37 H ALT 40 Alkaline Phosphatase 95 Total Protein 7.6 Albumin 3.8 Urine Color Urine Appearance Urine pH Ur Specific [place] Urine Protein Urine Glucose (UA) Urine Ketones Urine Blood Urine Nitrite Ur Leukocyte Esterase Urine WBC (Auto) Urine RBC (Auto) Labs reviewed, shows a significant leukocytosis Impressions: Chest X-Ray 10/17/16 21:52 IMPRESSION: NO ACUTE RADIOGRAPHIC FINDING IN THE CHEST. KUB X-Ray 10/18/16 00:00 IMPRESSION: NO RADIOGRAPHIC EVIDENCE FOR ACUTE ABDOMINAL DISEASE. Status: Imported from PACS - Reports reviewed Assessment & Plan - Diagnosis (1) Acute asthma exacerbation Qualifiers: Asthma severity: moderate persistent Qualified Code(s): J45.41 - Moderate persistent asthma with (acute) exacerbation Is this a current diagnosis for this admission?: YesPlan: Continue treatment with nebulizers and systemic steroids; add empiric Levaquin therapy as she is at grave risk for gram-negative and encapsulated organisms due to the loss of her spleen. (2) H/O splenectomy Is this a current diagnosis for this admission?: YesPlan: As above (3) Pulmonary nodule, right Is this a current diagnosis for this admission?: YesPlan: She was strongly encouraged to stop smoking. She will need follow-up CT scan of the chest in the next year per current recommendations for a 5 mm nodule. (4) Anxiety Is this a current diagnosis for this admission?: YesPlan: Poorly controlled, greatly exacerbating many of her symptoms. Continue anxiolytics. (5) Tobacco dependency Is this a current diagnosis for this admission?: YesPlan: Counseled regarding tobacco cessation for at least 7 minutes the bedside in the presence of her . Continue nicotine replacement therapy. (6) Flank pain, chronic Is this a current diagnosis for this admission?: YesPlan: With an acute exacerbation, likely due to the acute infectious process, stress from her COPD exacerbation and acute worsening of her anxiety related to the pulmonary nodule. We'll add a muscle relaxant, continue Ativan, and Toradol as needed. Urinalysis and KUB were both argue against an acute pathologic process. - Time Time Spent with patient: 25-34 minutes Medications reviewed and adjusted accordingly: Yes
[2016-10-18] MEDS: LEVOFLOXACIN 750 MG/D5W RTU 750 MG/150 ML RTUPB IV SCH (14:11)
[2016-10-19] MEDS: METHYLPREDNISOLONE INJ 40 MG/1 ML SDV IV SCH ×3 (06:00→21:39)
[2016-10-19] MEDS: LANSOPRAZOLE 30 MG TAB.RAP.DR PO SCH ×2 (06:01→15:45)
[2016-10-19 08:04] LABS: HEMATOCRIT 33.1 % (36.0-47.0); HEMOGLOBIN 10.8 g/dL (12.0-15.5); HGB HCT DIFFERENCE -0.7; MEAN CORPUSCULAR HEMOGLOBIN 29.7 pg (27.0-33.4); MEAN CORPUSCULAR HGB CONC 32.8 g/dL (32.0-36.0); MEAN CORPUSCULAR VOLUME 91 fl (80-97); RED BLOOD COUNT 3.65 10^6/uL (3.72-5.28); RED CELL DISTRIBUTION WIDTH 14.7 % (11.5-14.0); WHITE BLOOD COUNT 24.8 10^3/uL (4.0-10.5)
[2016-10-19 08:18] LABS: ANION GAP 8 (5-19); BLOOD UREA NITROGEN 8 mg/dL (7-20); CALCIUM 9.7 mg/dL (8.4-10.2); CARBON DIOXIDE 26 mmol/L (22-30); CHLORIDE 110 mmol/L (98-107); CREATININE RESULT 0.59 mg/dL (0.52-1.25); GLUCOSE 125 mg/dL (75-110); POTASSIUM 4.5 mmol/L (3.6-5.0)
[2016-10-19 08:34] LABS: BASOPHILS % (MANUAL) 0 % (0-2); EOSINOPHILS % (MANUAL) 0 % (0-6); LYMPHOCYTES % (MANUAL) 10 % (13-45); TOTAL CELLS COUNTED 100
[2016-10-19 08:36] LABS: BURR CELLS SLIGHT; OVALOCYTES SLIGHT; POIKILOCYTOSIS SLIGHT
[2016-10-19] MEDS: IPRATROPIUM/ALBUTEROL 0.5-2.5 MG/3 ML AMPUL NEB SCH ×3 (08:49→20:25)
[2016-10-19] MEDS: KETOROLAC TROMETHAMINE INJ/PF 30 MG/1 ML SDV IV PRN (10:58)
[2016-10-19] MEDS: LORAZEPAM 0.5 MG TABLET PO PRN (10:58)
[2016-10-19] MEDS: GUAIFENESIN SYRP 200 MG/10 ML UDC PO PRN (10:59)
[2016-10-19] MEDS: ENOXAPARIN SODIUM INJ 40 MG/0.4 ML DISP.SYRIN SUBCUT SCH (11:03)
[2016-10-19] MEDS: SODIUM CHLORIDE NASAL SPRAY 44 ML NASL SCH ×3 (13:58→21:40)
[2016-10-19] MEDS: LEVOFLOXACIN 750 MG/D5W RTU 750 MG/150 ML RTUPB IV SCH (15:44)
--- NOTE | 2016-10-19 16:42 | PDOC PROGRESS REPORT ---
Subjective Progress Note for:: 10/19/16 Subjective:: Reason for visit: Called to bedside to evaluate patient's flank pain; admitted for COPD exacerbation Hospital course: Her H&P "JOEY OG is a 36 year old female with underlying asthma, pack of cigarettes every week, who presents to the emergency room for her third visit in approximately 12 hours, according to , who is present at her side with her approval. Describes a 2 day history of slowly progressive difficulty breathing, despite albuterol nebulizer treatments at home. Reportedly recovered quite nicely during her first 2 emergency room visits, but within several hours after her second visit, breathing difficulty recurred, with O2 saturation was on room air. She's had a dry cough but no nausea and vomiting. Possible fever, but not completely certain. No chills. Mild dysuria. No diarrhea. Chest and abdominal pain only with a cough. No flu vaccination this year. Only one prior intubation for respiratory difficulty, as a child." Patient underwent CT of the chest that showed no evidence of pulmonary emboli and by my interpretation evidence for centrilobular emphysema and air trapping but no focal airspace disease; incidental note is made of a 5 mm right upper lobe pulmonary nodule. Incidentally she is asplenic. Patient reported intractable, intense right flank pain described as sharp stabbing burning unbearable pain. Radiates to the left and down into her buttocks. Worse with certain positions, improved by lying on her left side, there is no associated dysuria, fever, chills, nausea or vomiting. She denies hematuria or prior history of renal stones. She states this is an old familiar pain for the last 2 years and it is usually acutely worsened when she is ill. She freely admits to high anxiety for equally exacerbating her pains. This improved with adjustment of her medications. It has not recurred. That being said, she continues to regularly petition the nursing staff for an increase in her anxiety medication and pain medicine. She denies chest pain, palpitations, nausea vomiting diarrhea, fever, chills, numbness or tingling. Continues to complain of expiratory wheeze, dry hacking cough, and breathlessness with exertion. ROS: per HPI plus a total of 10 systems reviewed, pertinent positives and negatives noted above, remaining systems negative. Physical Exam Vital Signs: Temp Pulse Resp BP Pulse Ox 98.4 F 79 14 113/59 L 95 02/23/17 14:57 10/19/16 14:57 10/19/16 14:57 10/19/16 14:57 10/19/16 14:57 EXAM GENERAL: NAD; well developed, thin and chronically ill-appearing; no obese; alert and oriented to person, place, time, situation HEENT: normocephalic, atraumatic; no conjunctival injection, no scleral icterus ; oral mucosa dry; extremely poor dentition and active gingivitis similar to that commonly found in methamphetamine addicts RESPIRATORY: no accessory muscle use, no increased WOB, good air entry bilaterally; resolution of faint right-sided wheezes, but no rales or rhonchi; coarse breath sounds bilateral CARDIO: no JVD; RRR; no systolic murmur; no tachycardia GI: soft; nondistended; normal bowel sounds; no rebound, rigidity, guarding; nontender VASCULAR: no carotid bruit; no abdominal bruit; no pallor; 2+ radial, DP pulse ; normal capillary refill EXTREMITIES: no calf tender; no palpable cords in calf; no clubbing, cyanosis , pedal edema PSYCH: normal affect, normal mood SKIN: warm; moist; no petechiae; no telengectasias; no jaundice; no rash MSK: Resolution of her tenderness to palpation over the paraspinal muscles right greater than left with the right muscle seemingly and spasm; Assessment & Plan - Diagnosis (1) Acute asthma exacerbation Qualifiers: Asthma severity: moderate persistent Qualified Code(s): J45.41 - Moderate persistent asthma with (acute) exacerbation Is this a current diagnosis for this admission?: YesPlan: Improved. Continue treatment with nebulizers and systemic steroids; added empiric Levaquin therapy as she is at grave risk for gram-negative and encapsulated organisms due to the loss of her spleen. (2) H/O splenectomy Is this a current diagnosis for this admission?: YesPlan: As above (3) Pulmonary nodule, right Is this a current diagnosis for this admission?: YesPlan: She was strongly encouraged to stop smoking. She will need follow-up CT scan of the chest in the next year per current recommendations for a 5 mm nodule. (4) Anxiety Is this a current diagnosis for this admission?: YesPlan: Poorly controlled, greatly exacerbating many of her symptoms. Continue anxiolytics. (5) Tobacco dependency Is this a current diagnosis for this admission?: Yes (6) Flank pain, chronic Is this a current diagnosis for this admission?: YesPlan: Improved. With an acute exacerbation, likely due to the acute infectious process, stress from her COPD exacerbation and acute worsening of her anxiety related to the pulmonary nodule. We'll add a muscle relaxant, continue Ativan, and Toradol as needed. Urinalysis and KUB both argue against an acute pathologic process. - Time Time Spent with patient: 25-34 minutes Medications reviewed and adjusted accordingly: Yes Anticipated discharge: Home Within: within 24 hours
[2016-10-19] MEDS: NORMAL SALINE 1000 ML 1,000 ML IV PRN (23:12)
[2016-10-20] MEDS: METHYLPREDNISOLONE INJ 40 MG/1 ML SDV IV SCH (05:17)
[2016-10-20] MEDS: LANSOPRAZOLE 30 MG TAB.RAP.DR PO SCH (05:17)
[2016-10-20] MEDS: ALBUTEROL SULFATE 0.083% NEB 2.5 MG/3 ML AMPUL NEB PRN (06:16)
[2016-10-20] MEDS: IPRATROPIUM/ALBUTEROL 0.5-2.5 MG/3 ML AMPUL NEB SCH (07:59)
[2016-10-20] MEDS: ENOXAPARIN SODIUM INJ 40 MG/0.4 ML DISP.SYRIN SUBCUT SCH (08:26)
[2016-10-20] MEDS: SODIUM CHLORIDE NASAL SPRAY 44 ML NASL SCH (08:27)
[2016-10-20] MEDS: LORAZEPAM 0.5 MG TABLET PO PRN (08:31)
[2016-10-20] MEDS: GUAIFENESIN SYRP 200 MG/10 ML UDC PO PRN (08:38)
[2016-10-20 12:03] VITALS: BP 126/89
--- NOTE | 2016-10-20 17:40 | PDOC DISCHARGE SUMMARY ---
General - Admit/Disc Date/PCP Admission Date/Primary Care Provider: 10/19/16 15:44 Discharge Date: 10/20/16 - Discharge Diagnosis (1) Acute asthma exacerbation Is this a current diagnosis for this admission?: YesSummary: Improved, continue systemic steroids and antibiotics. Follow-up with pulmonology in one week. (2) H/O splenectomy Is this a current diagnosis for this admission?: Yes (3) Pulmonary nodule, right Is this a current diagnosis for this admission?: YesSummary: Follow-up with pulmonology or her oncologist for surveillance, current recommendations are for repeat CT scan in 12 months. (4) Anxiety Is this a current diagnosis for this admission?: Yes (5) Tobacco dependency Is this a current diagnosis for this admission?: Yes (6) Flank pain, chronic Is this a current diagnosis for this admission?: Yes - Additional Information Resuscitation Status: Full Code Discharge Diet: As Tolerated Discharge Activity: Activity As Tolerated Home Medications: Albuterol Sulfate [Proair HFA Inhalation Aerosol 8.5 gm MDI] 2 puff IH Q4H PRN # 1 mdi 03/26/16 Nebulizer [Nebulizer Machine] 1 each MC ASDIR PRN #1 kit 10/17/16 Promethazine HCl 25 mg PO TIDP PRN 10/18/16 Acetaminophen [Tylenol 325 mg Tablet] 650 mg PO Q4HP PRN tablet 10/20/16 Albuterol Sulfate [Ventolin 0.083% Neb 2.5 mg/3 mL Ampul] 2.5 mg NEB RTQ4HP PRN vial.neb 10/20/16 Amox Tr/Potassium Clavulanate [Augmentin 400-57 mg/5 mL Suspension] 10 ml PO BID #20 dose 10/20/16 Ipratropium/Albuterol Sulfate [Duoneb 3 ml Ampul] 3 ml NEB RTQ8HP PRN #100 vial.neb 10/20/16 Lorazepam [Ativan 0.5 mg Tablet] 1 - 2 tab PO BIDP PRN #20 tablet 10/20/16 Mometasone/Formoterol [Dulera 200 Mcg/5 Mcg Inhaler] 13 gm IH BID #1 hfa.aer.ad 10/20/16 Prednisone [Deltasone 20 mg Tablet] 3 tab PO DAILY 5 Days 10/20/16 History of Present Illness Patient complains of: Cough, shortness of breath, wheezing History of Present Illness: JOEY OG is a 36 year old female with underlying asthma, pack of cigarettes every week, who presents to the emergency room for her third visit in approximately 12 hours, according to , who is present at her side with her approval. Describes a 2 day history of slowly progressive difficulty breathing, despite albuterol nebulizer treatments at home. Reportedly recovered quite nicely during her first 2 emergency room visits, but within several hours after her second visit, breathing difficulty recurred, with O2 saturation was on room air. She's had a dry cough but no nausea and vomiting. Possible fever, but not completely certain. No chills. Mild dysuria. No diarrhea. Chest and abdominal pain only with a cough. No flu vaccination this year. Only one prior intubation for respiratory difficulty, as a child." Hospital Course Hospital Course: Patient underwent CT of the chest that showed no evidence of pulmonary emboli and by my interpretation evidence for centrilobular emphysema and air trapping but no focal airspace disease; incidental note is made of a 5 mm right upper lobe pulmonary nodule. Incidentally she is asplenic. Patient reported intractable, intense right flank pain described as sharp stabbing burning unbearable pain. Radiates to the left and down into her buttocks. Worse with certain positions, improved by lying on her left side, there is no associated dysuria, fever, chills, nausea or vomiting. She denies hematuria or prior history of renal stones. She states this is an old familiar pain for the last 2 years and it is usually acutely worsened when she is ill. She freely admits to high anxiety for equally exacerbating her pains. This improved with adjustment of her medications. It has not recurred. That being said, she continues to regularly petition the nursing staff for an increase in her anxiety medication and pain medicine. With systemic steroids, and broad-spectrum antibiotics, scheduled and as needed nebulizers she did improve over the course of the next couple of days such that she is now back to baseline and stable for discharge home. Physical Exam Vital Signs: Temp Pulse Resp BP Pulse Ox 97.9 F 68 16 126/89 H 98 10/20/16 11:54 10/20/16 11:54 10/20/16 11:54 10/20/16 11:54 10/20/16 11:54 Intake & Output 10/19/16 10/20/16 10/21/16 06:59 06:59 06:59 Intake Total 840 Balance 840 EXAM GENERAL: NAD; well developed, thin and chronically ill-appearing; no obese; alert and oriented to person, place, time, situation HEENT: normocephalic, atraumatic; no conjunctival injection, no scleral icterus ; oral mucosa dry; extremely poor dentition and active gingivitis similar to that commonly found in methamphetamine addicts RESPIRATORY: no accessory muscle use, no increased WOB, good air entry bilaterally; resolution of faint right-sided wheezes, but no rales or rhonchi; coarse breath sounds bilateral CARDIO: no JVD; RRR; no systolic murmur; no tachycardia GI: soft; nondistended; normal bowel sounds; no rebound, rigidity, guarding; nontender VASCULAR: no carotid bruit; no abdominal bruit; no pallor; 2+ radial, DP pulse ; normal capillary refill EXTREMITIES: no calf tender; no palpable cords in calf; no clubbing, cyanosis , pedal edema PSYCH: normal affect, normal mood SKIN: warm; moist; no petechiae; no telengectasias; no jaundice; no rash MSK: Resolution of her tenderness to palpation over the paraspinal muscles right greater than left with the right muscle seemingly and spasm; Results Impressions: Chest X-Ray 10/17/16 21:52 IMPRESSION: NO ACUTE RADIOGRAPHIC FINDING IN THE CHEST. KUB X-Ray 10/18/16 00:00 IMPRESSION: NO RADIOGRAPHIC EVIDENCE FOR ACUTE ABDOMINAL DISEASE. Qualifiers PATEINT BEING DISCHARGED WITH ANY OF THE FOLLOWING DIAGNOSIS?: No VTE patient discharged on overlapping Therapy?: Yes Plan Discharge Plan: Finish course of steroids and antibiotics at home. 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 Return emerged workup for any worsening of her condition. Time Spent: Greater than 30 Minutes - She expressed no concerns about discharge home today in fact she seemed rather anxious to go home.
== END 2016-10-20 12:44 | disposition home or self-care (01) | DRG 203 ==
LOC: ER 21:50 → INTOOBSV 10-18 02:47 → EH 10-18 02:47 → UNDOADMIN 10-18 02:54 → 3S 10-18 06:30 → OBSVTOIN 10-19 15:44 → 4S 10-20 04:35
PROVIDERS: ADMIT Family Medicine; ATTEND Family Medicine
DX: J45.41 Moderate persistent asthma with (acute) exacerbation (principal); R91.1 Solitary pulmonary nodule; F41.9 Anxiety disorder, unspecified; F17.210 Nicotine dependence, cigarettes, uncomplicated; R10.31 Right lower quadrant pain; Z90.81 Acquired absence of spleen; Z79.51 Long term (current) use of inhaled steroids
CPT/HCPCS: 36415; 36600; 71010; 74000; 80048; 80053; 80076; 81001; 82550; 82553; 82803; 84484; 84703; 85025; 85379; 87040; 87804; 94640; 94799; 96374; 99291; G0378; J1650; J1885; J1956; J2920; J2930; J3490; J7030; J7620

== ENCOUNTER 2017-07-29 10:04 | Emergency (ER) | payer MEDICAID ==
[2017-07-29] MEDS ORDERED: PREDNISONE 20 MG TABLET PO ONE (10:27)
[2017-07-29] MEDS ORDERED: IPRATROPIUM/ALBUTEROL 0.5-2.5 MG/3 ML AMPUL NEB ONE (10:27)
--- NOTE | 2017-07-29 10:29 | ER Document Report ---
ED Medical Screen (RME) - General Chief Complaint: Breathing Difficulty Stated Complaint: BREATHING DIFFICULTY Time Seen by Provider: 07/29/17 10:26 Mode of Arrival: Wheelchair Information source: Patient TRAVEL OUTSIDE OF THE [place] IN LAST 30 DAYS: No - HPI Patient complains to provider of: wheezing, ear pain Onset: Other - pt states she has h/o asthma and has been having whezing and SOB wigth intermittent earache for the past 2 wks. - Related Data Allergies/Adverse Reactions: morphine Adverse Reaction (Verified 10/17/16 08:28) nausea/vomiting peanut butter Adverse Reaction (Uncoded 10/18/16 06:52) Swelling of Throat Home Medications: Current Home Medications Tiotropium [place] [Spiriva Handihaler 18 mcg/dose (30 Dose)] 1 cap IH DAILY 11/10 [History] Past Medical History - Social History Chew tobacco use (# tins/day): No Frequency of alcohol use: None Drug Abuse: None - Past Medical History Cardiac Medical History: Reports: Hx Hypercholesterolemia - History of Denies: Hx Congestive Heart Failure, Hx DVT, Hx Heart Attack, Hx Hypertension , Hx Pulmonary Embolism Pulmonary Medical History: Reports: Hx Asthma Neurological Medical History: Denies: Hx Seizures Endocrine Medical History: Denies: Hx Diabetes Mellitus Type 1, Hx Diabetes Mellitus Type 2, Hx Hyperthyroidism, Hx Hypothyroidism Renal/ Medical History: Denies: Hx Peritoneal Dialysis GI Medical History: Denies: Hx Cirrhosis, Hx Gastroesophageal Reflux Disease, Hx Hepatitis Musculoskeltal Medical History: Denies Hx Arthritis Skin Medical History: Denies Hx Eczema, Denies Hx Psoriasis Psychiatric Medical History: Reports: Hx Anxiety Denies: Hx Depression Infectious Medical History: Denies: Hx Hepatitis Past Surgical History: Reports: Hx Mastectomy - double - Immunizations Immunizations up to date: Yes Physical Exam - Vital signs Vitals: Temp Pulse Resp BP Pulse Ox 99.6 F 120 H 22 H 104/70 98 07/29/17 10:12 07/29/17 10:12 07/29/17 10:12 07/29/17 10:12 07/29/17 10:12 Course - Vital Signs Vital signs: Temp Pulse Resp BP Pulse Ox 99.6 F 120 H 22 H 104/70 98 07/29/17 10:12 07/29/17 10:12 07/29/17 10:12 07/29/17 10:12 07/29/17 10:12
[2017-07-29 11:05] LABS: ABSOLUTE LYMPHOCYTES (AUTO) 2.5 10^3/uL (0.5-4.7); ABSOLUTE MONOCYTES (AUTO) 0.9 10^3/uL (0.1-1.4); ABSOLUTE NEUT (AUTO) 6.8 10^3/uL (1.7-8.2); BASOPHILS % (AUTO) 0.5 % (0-2); EOSINOPHILS % (AUTO) 0.1 % (0-6); HEMATOCRIT 38.4 % (36.0-47.0); HEMOGLOBIN 13.1 g/dL (12.0-15.5); HGB HCT DIFFERENCE 0.9; LYMPHOCYTES % (AUTO) 24.7 % (13-45); MEAN CORPUSCULAR HEMOGLOBIN 30.4 pg (27.0-33.4); MEAN CORPUSCULAR HGB CONC 34.1 g/dL (32.0-36.0); MEAN CORPUSCULAR VOLUME 89 fl (80-97); MONOCYTES % (AUTO) 8.6 % (3-13); RED BLOOD COUNT 4.31 10^6/uL (3.72-5.28); RED CELL DISTRIBUTION WIDTH 14.7 % (11.5-14.0); SEGMENTED NEUTROPHILS % (AUTO) 66.1 % (42-78); WHITE BLOOD COUNT 10.2 10^3/uL (4.0-10.5)
[2017-07-29 11:07] LABS: APPEARANCE,URINE SLIGHTLY-CLOUDY; BILIRUBIN,URINE NEGATIVE (NEGATIVE); GLUCOSE, URINE NEGATIVE (NEGATIVE); KETONES,URINE NEGATIVE (NEGATIVE); LEUKOCYTE ESTERASE,URINE LARGE (NEGATIVE); NITRITE,URINE NEGATIVE (NEGATIVE); PROTEIN,URINE NEGATIVE (NEGATIVE); URINE SPECIFIC GRAVITY 1.008; UROBILINOGEN,URINE NEGATIVE mg/dL (<2.0)
--- NOTE | 2017-07-29 11:11 | RADIOLOGY REPORT (SQ) ---
EXAM DESCRIPTION: CHEST PA/LAT COMPLETED DATE/TIME: 07/29/2017 10:59 am REASON FOR STUDY: sob COMPARISON: 10/17/2016 EXAM PARAMETERS: NUMBER OF VIEWS: two views TECHNIQUE: Digital Frontal and Lateral radiographic views of the chest acquired. RADIATION DOSE: NA LIMITATIONS: none FINDINGS: LUNGS AND PLEURA: No opacities, masses or pneumothorax. No pleural effusion. MEDIASTINUM AND HILAR STRUCTURES: No masses or contour abnormalities. HEART AND VASCULAR STRUCTURES: Heart normal size. No evidence for failure. BONES: No acute findings. HARDWARE: None in the chest. OTHER: No other significant finding. IMPRESSION: NO ACUTE RADIOGRAPHIC FINDING IN THE CHEST. TECHNICAL DOCUMENTATION: JOB ID: [id number] [employer]- All Rights Reserved
[2017-07-29 11:19] LABS: WBC,URINE 0-1 /HPF
[2017-07-29 11:20] LABS: ALANINE AMINOTRANSFERASE 54 U/L (9-52); ALBUMIN 4.6 g/dL (3.5-5.0); ALKALINE PHOSPHATASE 111 U/L (38-126); ANION GAP 15 (5-19); ASPARTATE AMINO TRANSFERASE 40 U/L (14-36); BACTERIA,URINE 2+ /HPF; BILIRUBIN,DIRECT 0.3 mg/dL (0.0-0.4); BILIRUBIN,TOTAL 0.6 mg/dL (0.2-1.3); BLOOD UREA NITROGEN 7 mg/dL (7-20); CALCIUM 9.6 mg/dL (8.4-10.2); CARBON DIOXIDE 25 mmol/L (22-30); CHLORIDE 103 mmol/L (98-107); CREATININE RESULT 0.74 mg/dL (0.52-1.25); GLUCOSE 91 mg/dL (75-110); POTASSIUM 4.6 mmol/L (3.6-5.0); SODIUM 143.1 mmol/L (137-145); TOTAL PROTEIN 7.6 g/dL (6.3-8.2)
--- NOTE | 2017-07-29 11:53 | ER Document Report ---
ED General - General Chief Complaint: Breathing Difficulty Stated Complaint: BREATHING DIFFICULTY Time Seen by Provider: 07/29/17 10:26 Mode of Arrival: Wheelchair Information source: Patient Notes: 37-year-old female presents with complaints of intermittent generalized body aches sore throat earaches. Patient notes initially symptoms started about 10 days ago, she started to feel better and then her son got sick and she knows that she started feeling ill last night. Patient denies any vomiting at this time. Patient son had negative influenza test yesterday TRAVEL OUTSIDE OF THE [place] IN LAST 30 DAYS: No - HPI Onset: Yesterday Onset/Duration: Sudden Quality of pain: Achy Severity: Mild Pain Level: 1 Associated symptoms: Body/muscle aches, Earache, Fever Exacerbated by: Denies Relieved by: Denies Similar symptoms previously: No Recently seen / treated by doctor: No - Related Data Allergies/Adverse Reactions: morphine Adverse Reaction (Verified 10/17/16 08:28) nausea/vomiting peanut butter Adverse Reaction (Uncoded 10/18/16 06:52) Swelling of Throat Home Medications: Current Home Medications Tiotropium [place] [Spiriva Handihaler 18 mcg/dose (30 Dose)] 1 cap IH DAILY 11/10 [History] Past Medical History - General Information source: Patient - Social History Smoking Status: Current Some Day Smoker Cigarette use (# per day): Yes Chew tobacco use (# tins/day): No Smoking Education Provided: No Frequency of alcohol use: None Drug Abuse: None Family History: Reviewed & Not Pertinent, Other - Asthma Patient has suicidal ideation: No Patient has homicidal ideation: No - Past Medical History Cardiac Medical History: Reports: Hx Hypercholesterolemia - History of Denies: Hx Congestive Heart Failure, Hx DVT, Hx Heart Attack, Hx Hypertension , Hx Pulmonary Embolism Pulmonary Medical History: Reports: Hx Asthma Neurological Medical History: Denies: Hx Seizures Endocrine Medical History: Denies: Hx Diabetes Mellitus Type 1, Hx Diabetes Mellitus Type 2, Hx Hyperthyroidism, Hx Hypothyroidism Renal/ Medical History: Denies: Hx Peritoneal Dialysis GI Medical History: Denies: Hx Cirrhosis, Hx Gastroesophageal Reflux Disease, Hx Hepatitis Musculoskeltal Medical History: Denies Hx Arthritis Skin Medical History: Denies Hx Eczema, Denies Hx Psoriasis Psychiatric Medical History: Reports: Hx Anxiety Denies: Hx Depression Infectious Medical History: Denies: Hx Hepatitis Past Surgical History: Reports: Hx Mastectomy - double - Immunizations Immunizations up to date: Yes Review of Systems - Review of Systems Notes: REVIEW OF SYSTEMS: CONSTITUTIONAL : Admits fevers chills recent illness EENT: D admits to earaches CARDIOVASCULAR: Denies chest pain. Denies palpitations or racing or irregular heart beat. Denies ankle edema. RESPIRATORY: Denies cough, cold, or chest congestion. Denies shortness of breath, difficulty breathing, or wheezing. GASTROINTESTINAL: Denies abdominal pain or distention. Denies nausea, vomiting , or diarrhea. Denies blood in vomitus, stools, or per rectum. Denies black, tarry stools. Denies constipation. GENITOURINARY: Denies difficulty urinating, painful urination, burning, frequency, blood in urine, or discharge. FEMALE GENITOURINARY: Denies vaginal bleeding, heavy or abnormal periods, irregular periods. Denies vaginal discharge or odor. MUSCULOSKELETAL admits to body aches SKIN: Denies rash, lesions or sores. HEMATOLOGIC : Denies easy bruising or bleeding. LYMPHATIC: Denies swollen, enlarged glands. NEUROLOGICAL: Denies confusion or altered mental status. Denies passing out or loss of consciousness. Denies dizziness or lightheadedness. Denies headache. Denies weakness or paralysis or loss of use of either side. Denies problems with gait or speech. Denies sensory loss, numbness, or tingling. Denies seizures. PSYCHIATRIC: Denies anxiety or stress. Denies depression, suicidal ideation, or homicidal ideation. ALL OTHER SYSTEMS REVIEWED AND NEGATIVE. PHYSICAL EXAMINATION: GENERAL: Well-appearing, well-nourished and in no acute distress. Patient looks sick but is not significantly ill appearing HEAD: Atraumatic, normocephalic. EYES: Pupils equal round and reactive to light, extraocular movements intact, conjunctiva are normal. ENT: Nares patent, oropharynx clear without exudates. Moist mucous membranes. NECK: Normal range of motion, supple without lymphadenopathy LUNGS: Breath sounds clear to auscultation bilaterally and equal. No wheezes rales or rhonchi. HEART: Regular rate and rhythm without murmurs ABDOMEN: Soft, nontender, nondistended abdomen. No guarding, no rebound. No masses appreciated. Female : deferred Musculoskeletal: Normal range of motion, no pitting or edema. No cyanosis. NEUROLOGICAL: Cranial nerves grossly intact. Normal speech, normal gait. Normal sensory, motor exams PSYCH: Normal mood, normal affect. SKIN: Warm, Dry, normal turgor, no rashes or lesions noted. Dictation was performed using [employer] voice recognition software Physical Exam - Vital signs Vitals: Temp Pulse Resp BP Pulse Ox 99.6 F 120 H 22 H 104/70 98 07/29/17 10:12 07/29/17 10:12 07/29/17 10:12 07/29/17 10:12 07/29/17 10:12 Course - Re-evaluation Re-evalutation: 07/29/17 15:03 Patient's lab work does not note any significant abnormality except for positive influenza, this would be consistent with the patient's illness. I did discuss the use of Tamiflu and she defers the medication. Symptomatic care has been instructed Patient was initially noted to be tachycardic however on my evaluation the patient's heart rate had improved After performing a Medical Screening Examination, I estimate there is LOW risk for ACUTE CORONARY SYNDROME, PULMONARY EMBOLI, RESPIRATORY FAILURE, SEPSIS OR MENINGITIS, thus I consider the discharge disposition reasonable. I have reevaluated this patient multiple times and no significant life threatening changes are noted. The patient and I have discussed the diagnosis and risks, and we agree with discharging home with close follow-up. We also discussed returning to the Emergency Department immediately if new or worsening symptoms occur. We have discussed the symptoms which are most concerning (e.g., changing or worsening pain, trouble swallowing or breathing, neck stiffness, fever) that necessitate immediate return. - Vital Signs Vital signs: Temp Pulse Resp BP Pulse Ox 99.2 F 98 16 100/61 95 07/29/17 12:02 07/29/17 12:02 07/29/17 12:02 07/29/17 12:02 07/29/17 12:02 - Laboratory Result Diagrams: 07/29/17 10:40 07/29/17 10:40 Laboratory results interpreted by me: 07/29/17 07/29/17 07/29/17 10:40 10:40 10:40 RDW 14.7 H Plt Count 490 H AST 40 H ALT 54 H Urine Blood MODERATE H Ur Leukocyte Esterase LARGE H - Diagnostic Test Radiology reviewed: Image reviewed, Reports reviewed Discharge - Discharge Clinical Impression: Influenza, Tachycardia Condition: Stable Disposition: HOME, SELF-CARE Instructions: Influenza ([facility]) [id number] Forms: Return to Work Referrals: RYAN JAMISON, PARER-C [Primary Care Provider] - Follow up in 3-5 days
[2017-07-29 12:18] VITALS: BP 100/61
== END 2017-07-29 12:00 | disposition home or self-care (01) ==
LOC: ER 10:04
DX: J11.1 Influenza due to unidentified influenza virus with other respiratory manifestations (principal); R00.0 Tachycardia, unspecified; R06.02 Shortness of breath; M79.1 Myalgia; H92.09 Otalgia, unspecified ear; F17.210 Nicotine dependence, cigarettes, uncomplicated
CPT/HCPCS: 94640; 99285; 36415; 85025; 80053; 81001; 87804; 71020; J7512; J7620

== ENCOUNTER 2017-11-20 11:11 | Day surgery (SDC) | payer MEDICAID ==
[2017-11-16 11:37] LABS: ABSOLUTE BASOPHILS # (AUTO) 0.1 10^3/uL (0.0-0.2); ABSOLUTE EOSINOPHILS # (AUTO) 0.1 10^3/uL (0.0-0.6); ABSOLUTE LYMPHOCYTES (AUTO) 3.1 10^3/uL (0.5-4.7); ABSOLUTE MONOCYTES (AUTO) 0.5 10^3/uL (0.1-1.4); ABSOLUTE NEUT (AUTO) 3.5 10^3/uL (1.7-8.2); BASOPHILS % (AUTO) 0.7 % (0-2); HEMATOCRIT 36.7 % (36.0-47.0); HEMOGLOBIN 12.4 g/dL (12.0-15.5); LYMPHOCYTES % (AUTO) 43.1 % (13-45); MEAN CORPUSCULAR HEMOGLOBIN 30.6 pg (27.0-33.4); MEAN CORPUSCULAR HGB CONC 33.7 g/dL (32.0-36.0); MEAN CORPUSCULAR VOLUME 91 fl (80-97); MONOCYTES % (AUTO) 6.4 % (3-13); PLATELET COUNT 500 10^3/uL (150-450); RED BLOOD COUNT 4.04 10^6/uL (3.72-5.28); RED CELL DISTRIBUTION WIDTH 14.7 % (11.5-14.0); SEGMENTED NEUTROPHILS % (AUTO) 48.8 % (42-78); TOTAL CELLS COUNTED % (AUTO) 100 %; WHITE BLOOD COUNT 7.2 10^3/uL (4.0-10.5)
[2017-11-16 11:57] LABS: ANION GAP 11 (5-19); BLOOD UREA NITROGEN 10 mg/dL (7-20); CALCIUM 9.9 mg/dL (8.4-10.2); CARBON DIOXIDE 31 mmol/L (22-30); CHLORIDE 102 mmol/L (98-107); GLUCOSE 104 mg/dL (75-110); POTASSIUM 4.2 mmol/L (3.6-5.0); SODIUM 143.8 mmol/L (137-145)
[~2017-11-20 11:11] MED LIST: LACTATED RINGERS 1000 ML IV PRN; LIDOCAINE 0.5% INJ-PF (5 MG/ML) 50 ML SDV SUBCUT PRN; SCOPOLAMINE HYDROBROMIDE 1.5 MG PATCH.TD72 TD PRN; SUCCINYLCHOLINE CHLORIDE INJ 200 MG/10 ML VIAL ONE
[2017-11-20] MEDS ORDERED: BUPIVACAINE HCL 0.5%/EPI 1:200000 INJ 1.8 ML CARTRIDGE ONE (12:53)
[2017-11-20] MEDS ORDERED: LIDOCAINE 2%/EPINEPHRINE INJ 1.7 ML CARTRIDGE ONE (12:53)
[2017-11-20] MEDS ORDERED: FENTANYL CITRATE INJ/PF 100 MCG/2 ML AMPUL ONE (13:04)
[2017-11-20] MEDS ORDERED: PROPOFOL INJ 200 MG/20 ML VIAL IV ONE (13:05)
[2017-11-20] MEDS ORDERED: DEXAMETHASONE SOD PHOSPHATE INJ 4 MG/1 ML VIAL ONE (13:05)
[2017-11-20] MEDS ORDERED: ONDANSETRON HCL INJ/PF 4 MG/2 ML SDV ONE ×2 (13:05→15:49)
[2017-11-20] MEDS ORDERED: ACETAMINOPHEN 100 ML IV ONE (13:05)
[2017-11-20] MEDS ORDERED: MIDAZOLAM 2 MG/2 ML INJ ONE (13:05)
[2017-11-20] MEDS ORDERED: DEXMEDETOMIDINE INJ 80 MCG/20 ML VIAL IV ONE (13:49)
[2017-11-20] MEDS ORDERED: MEPERIDINE HCL/PF INJ 25 MG/1 ML DISP.SYRIN IV PRN (13:51)
[2017-11-20] MEDS ORDERED: ONDANSETRON HCL INJ/PF 4 MG/2 ML SDV IV PRN (13:51)
[2017-11-20] MEDS ORDERED: FENTANYL CITRATE INJ/PF 100 MCG/2 ML AMPUL IV PRN ×3 (13:51)
[2017-11-20] MEDS ORDERED: DIPHENHYDRAMINE HCL 50 MG/ML VIAL IV PRN (13:51)
[2017-11-20] MEDS ORDERED: PROMETHAZINE HCL INJ 25 MG/1 ML VIAL IV PRN (13:51)
--- NOTE | 2017-11-20 14:48 | Operative Report ---
Operative Report DATE OF SURGERY: 11/20/17 PREOPERATIVE DIAGNOSIS: Dental caries POSTOPERATIVE DIAGNOSIS: Same OPERATION: Surgical removal of teeth numbers 1, 3, 7, 8, 9, 10, 11, 14, 16, 19, 23, 24, 25, 26 and 30 with alveoloplasties of all 4 quadrants SURGEON: LUCÍA NOEL ANESTHESIA: GA TISSUE REMOVED OR ALTERED: Teeth which were discarded COMPLICATIONS: None ESTIMATED BLOOD LOSS: 25 mL INTRAOPERATIVE FINDINGS: Tooth numbers 15 and 22 were also grossly decayed however patient's dentist wanted these teeth left in place for now. PROCEDURE: The patient was brought into operating room #3 and placed on the operating room table in supine position. General anesthesia was induced via a peripheral IV and continued utilizing nasal endotracheal intubation through the right nares. The patient was then prepped and draped in the usual fashion for an intraoral procedure. A total of 4 carpules of 2% Lidocaine with 1:100K Epi and for carpules of 0.5% Marcaine with 1:200K Epi were delivered to the planned surgical sites via both infiltration and nerve block. The oral cavity and oropharynx were suctioned and a moistened oropharyngeal throat pack was placed. A bite block was used throughout the procedure. Full thickness mucoperisteal flaps were elevated. Ostectomy was completed as needed. Teeth were sectioned as needed. Teeth were delivered with elevators and forceps. Alveoloplasties were completed using rongeurs and bone files. All sites debrided and irrigated. No sinus exposure noted. Mandible intact post op. ASAEL not visualized. Wounds reapproximated and sutured with 4-0 chromic gut. The oral cavity was suctioned and found to be free of debris. The throat pack was removed. The oropharynx was suctioned. Gauze packs were placed bilaterally to aid in continued hemastasis. The patient was awakened from general anesthesia, extubated in the operating room and taken to recovery in spontaneous breathing fashion.
--- NOTE | 2017-11-20 14:52 | PDOC PROGRESS REPORT ---
Subjective Progress Note for:: 11/20/17 Subjective:: Prior to going into the operating room the patient was concerned about whether or not a tooth on the upper right was being removed. We determined in holding that it was tooth #4 and that tooth was added to the treatment plan. However once in the operating room under general anesthesia with good lighting it was determined that the tooth that the patient had pointed at was actually tooth #3 and that tooth was already on the treatment plan for removal. During the surgery it was noted that teeth numbers 15 and 22 were grossly decayed and appeared nonrestorable. These teeth however were not on the treatment plan for removal. After the surgery I discussed with the patient's boyfriend Yfn these findings and told him that if her dentist determines that these teeth need to be removed that could be accomplished in the office. Reason For Visit: K02.9 DENTAL CARIES, UNSPECIFIED, K00.6, M26.30 Physical Exam Vital Signs: Temp Pulse Resp BP Pulse Ox 98.4 F 102 H 16 129/98 H 100 11/20/17 11:15 11/20/17 11:15 11/20/17 11:15 11/20/17 11:15 11/20/17 11:15 Intake & Output 11/19/17 11/20/17 11/21/17 06:59 06:59 06:59 Intake Total 0 Output Total 0 Balance 0 Weight 54.43 kg Results Laboratory Results: 11/16/17 10:57 11/16/17 10:57
[2017-11-20 17:50] VITALS: BP 99/55
== END 2017-11-20 17:30 | disposition home or self-care (01) ==
LOC: OROUT 11:11
PROVIDERS: ATTEND Dentist Oral and Maxillofacial Surgery
DX: K02.9 Dental caries, unspecified (principal); K00.6 Disturbances in tooth eruption; M26.30 Unspecified anomaly of tooth position of fully erupted tooth or teeth; J45.909 Unspecified asthma, uncomplicated; Z88.5 Allergy status to narcotic agent
CPT/HCPCS: 41899; 41874 ×4; 36415; 85025; 81025; 80048; J2250; J3490 ×4; J1100; J3010; J0330; J2405; J2704; J0131; 170

== ENCOUNTER 2018-07-22 10:24 | Emergency (ER) | payer MEDICAID ==
[2018-07-22 11:43] LABS: ABSOLUTE MONOCYTES (AUTO) 0.3 10^3/uL (0.1-1.4); ABSOLUTE NEUT (AUTO) 4.2 10^3/uL (1.7-8.2); BASOPHILS % (AUTO) 0.7 % (0-2); EOSINOPHILS % (AUTO) 0.1 % (0-6); HEMATOCRIT 34.2 % (36.0-47.0); LYMPHOCYTES % (AUTO) 30.7 % (13-45); MEAN CORPUSCULAR HEMOGLOBIN 31.5 pg (27.0-33.4); MEAN CORPUSCULAR VOLUME 90 fl (80-97); MONOCYTES % (AUTO) 4.4 % (3-13); PLATELET COUNT 497 10^3/uL (150-450); RED BLOOD COUNT 3.81 10^6/uL (3.72-5.28); RED CELL DISTRIBUTION WIDTH 13.5 % (11.5-14.0); SEGMENTED NEUTROPHILS % (AUTO) 64.1 % (42-78); TOTAL CELLS COUNTED % (AUTO) 100 %; WHITE BLOOD COUNT 6.6 10^3/uL (4.0-10.5)
[2018-07-22 11:55] LABS: ALANINE AMINOTRANSFERASE 16 U/L (9-52); ALBUMIN 4.2 g/dL (3.5-5.0); ALKALINE PHOSPHATASE 74 U/L (38-126); ANION GAP 12 (5-19); ASPARTATE AMINO TRANSFERASE 20 U/L (14-36); BILIRUBIN,DIRECT 0.2 mg/dL (0.0-0.4); BILIRUBIN,TOTAL 0.4 mg/dL (0.2-1.3); BLOOD UREA NITROGEN 11 mg/dL (7-20); CALCIUM 9.4 mg/dL (8.4-10.2); CARBON DIOXIDE 25 mmol/L (22-30); CHLORIDE 105 mmol/L (98-107); GLUCOSE 104 mg/dL (75-110); TOTAL PROTEIN 7.1 g/dL (6.3-8.2)
--- NOTE | 2018-07-22 11:59 | RADIOLOGY REPORT (SQ) ---
EXAM DESCRIPTION: CTA CHEST COMPLETED DATE/TIME: 07/22/2018 11:26 am REASON FOR STUDY: dyspnea shortness of breath COMPARISON: 10/17/2016 CT chest TECHNIQUE: CT scan of the chest performed using helical scanning technique with dynamic intravenous contrast injection. Images reviewed with lung, soft tissue and bone windows. Reconstructed coronal and sagittal MPR images reviewed. Additional 3 dimensional post-processing performed to develop Maximal Intensity Projection images (RI P). All images stored on PACS. All CT scanners at this facility use dose modulation, iterative reconstruction, and/or weight based d osing when appropriate to reduce radiation dose to as low as reasonably achievable (ALARA). [facility]: Dose Right [facility]: CareDose [facility]: Dose Right [facility]: Teradose 4D [facility]: Neo PLM CONTRAST TYPE AND DOSE: contrast/concentration: Isovue 350.00 mg/ml; Total Contrast Delivered: 62.0 ml; Total Saline Delivered: 90.0 ml Contrast bolus optimized for the pulmonary arteries and thoracic aorta. RENAL FUNCTION: None required. The patient is less than 50 years old. RADIATION DOSE: CT Rad equipment meets quality standard of care and radiation dose reduction techniq ues were employed. CTDIvol: 16.0 - 19.8 mGy. DLP: 577 mGy-cm. . LIMITATIONS: None. FINDINGS: LUNGS AND PLEURA: No acute infiltrates. No pleural effusion. No pneumothorax. No worris ome pulmonary nodules. Benign 4-5 mm nodule along the right minor fissure of doubtful clinical signi ficance. AORTA AND GREAT VESSELS: No aneurysm. No thoracic aortic dissection. Aberrant right subclavian randa ry. HEART: No pericardial effusion. No significant coronary artery calcifications. PULMONARY ARTERIES: No emboli visualized in the main pulmonary arteries or the segmental branches. HILAR AND MEDIASTINAL STRUCTURES: No identified masses or abnormal nodes. HARDWARE: Post bilateral mastectomy with retropectoral saline implants UPPER ABDOMEN: Post splenectomy THYROID AND OTHER SOFT TISSUES: No masses. No adenopathy. BONES: No acute or significant finding. 3D MIPS: Confirm above findings. OTHER: No other significant finding. IMPRESSION: No CT angio evidence of acute pulmonary emboli. No thoracic aortic dissection. Post bilateral mastectomies with retropectoral breast implants. Post splenectomy. No worrisome pulmonary nodules. COMMENT: Quality ID # [id number]: Final reports with documentation of one or more dose reduction techniques (e.g., Automated exposure control, adjustment of the mA and/or kV according to patient size, use of iterative reconstruction technique) TECHNICAL DOCUMENTATION: JOB ID: [id number] [employer]- All Rights Reserved Reading location - IP/workstation name: [email or web address]
[2018-07-22 12:57] VITALS: BP 85/45
--- NOTE | 2018-07-22 13:06 | ER Document Report ---
ED General - General Chief Complaint: Shortness Of Breath Stated Complaint: SHORTNESS OF BREATH Time Seen by Provider: 07/22/18 10:40 Mode of Arrival: Medic Information source: Patient TRAVEL OUTSIDE OF THE [place] IN LAST 30 DAYS: No - HPI Patient complains to provider of: Shortness of breath Onset: Other - 38-year-old female that presents for evaluation of shortness of breath which started while at work today she says it initially felt somewhat like her asthma attacks and anxiety but worsened and made her lightheaded which is markedly different than normal things for her. Her symptoms persisted at which time she called her to bring her albuterol. Following calling her her shortness of breath continued to worsen thus she called the ambulance because she did not have access to albuterol at that time. She was subsequently transported to the hospital given a breathing treatment in route which she says is helped with her breathing substantially but she does have some element of tightness still in the chest. - Related Data Allergies/Adverse Reactions: morphine Adverse Reaction (Verified 07/22/18 11:22) nausea/vomiting peanut butter Adverse Reaction (Uncoded 07/22/18 11:22) Swelling of Throat Past Medical History - General Information source: Patient - Social History Smoking Status: Current Some Day Smoker Chew tobacco use (# tins/day): No Frequency of alcohol use: None Drug Abuse: None Family History: Reviewed & Not Pertinent, Other - Asthma Patient has suicidal ideation: No Patient has homicidal ideation: No - Past Medical History Cardiac Medical History: Reports: Hx Hypercholesterolemia - History of Denies: Hx Congestive Heart Failure, Hx Coronary Artery Disease, Hx DVT, Hx Heart Attack, Hx Hypertension, Hx Pulmonary Embolism Pulmonary Medical History: Reports: Hx Asthma, Hx Bronchitis, Hx Pneumonia Denies: Hx COPD Neurological Medical History: Denies: Hx Cerebrovascular Accident, Hx Seizures Endocrine Medical History: Denies: Hx Diabetes Mellitus Type 1, Hx Diabetes Mellitus Type 2, Hx Hyperthyroidism, Hx Hypothyroidism Renal/ Medical History: Denies: Hx Peritoneal Dialysis GI Medical History: Denies: Hx Cirrhosis, Hx Gastroesophageal Reflux Disease, Hx Hepatitis Musculoskeletal Medical History: Denies Hx Arthritis Skin Medical History: Denies Hx Eczema, Denies Hx Psoriasis Psychiatric Medical History: Reports: Hx Anxiety Denies: Hx Depression Infectious Medical History: Denies: Hx Hepatitis Past Surgical History: Reports: Hx Mastectomy - double - Immunizations Immunizations up to date: Yes Hx Diphtheria, Pertussis, Tetanus Vaccination: Yes Review of Systems - Review of Systems -: Yes All other systems reviewed and negative Physical Exam - Vital signs Vitals: Pulse Ox 100 07/22/18 10:30 - General General appearance: Appears well, Alert - HEENT Head: Normocephalic, Atraumatic Eyes: Normal Pupils: PERRL - Respiratory Respiratory status: No respiratory distress Chest status: Nontender Breath sounds: Normal Chest palpation: Normal - Cardiovascular Rhythm: Regular Heart sounds: Normal auscultation Murmur: No - Abdominal Inspection: Normal Distension: No distension Bowel sounds: Normal Tenderness: Nontender Organomegaly: No organomegaly - Back Back: Normal, Nontender - Extremities General upper extremity: Normal inspection, Nontender, Normal color, Normal ROM , Normal temperature General lower extremity: Normal inspection, Nontender, Normal color, Normal ROM , Normal temperature, Normal weight bearing. No: Nora's sign - Neurological Neuro grossly intact: Yes Cognition: Normal Orientation: AAOx4 [place] Coma Scale Eye Opening: Spontaneous [place] Coma Scale Verbal: Oriented [place] Coma Scale Motor: Obeys Commands Milena Coma Scale Total: 15 Speech: Normal Motor strength normal: LUE, RUE, LLE, RLE Sensory: Normal - Psychological Associated symptoms: Normal affect, Normal mood Course - Re-evaluation Re-evalutation: 38-year-old female with a history of asthma the presents for evaluation of shortness of breath which responded well to albuterol prior to arrival though she says that it made her more lightheaded than previous episodes of asthma in the past. Because of her concern related to possible more serious underlying causes of her shortness of breath we will pursue broad workup including CT of the chest troponin chemistry and count. Patient is said that if she does not have a blood clot she feels comfortable that is likely just her asthma. She has a negative troponin reassuring EKG. CT of the chest does not demonstrate any acute pulmonary embolus. Her work of breathing improved in the emergency department without any other worsening symptoms. At the time of reevaluation following obtaining labs patient was chest pain-free, said that she felt well, felt ready to be discharged home. - Vital Signs Vital signs: Temp Pulse Resp BP Pulse Ox 16 85/45 L 99 07/22/18 12:44 07/22/18 12:44 07/22/18 12:44 - Laboratory Result Diagrams: 07/22/18 11:08 07/22/18 11:08 Laboratory results interpreted by me: 07/22/18 11:08 Hct 34.2 L Plt Count 497 H Discharge - Discharge Clinical Impression: Shortness of breath, Wheezing, Chest tightness Condition: Good Disposition: HOME, SELF-CARE Instructions: Asthma ([facility]) Additional Instructions: Your seen today in the emergency department for the pain and shortness of breath that you had. He had evaluation including a physical exam as well as blood tests for damage to your heart, you had a CT scan of your chest. It is likely that your shortness of breath was a result of your asthma. No blood clot was identified on your CT scan. Continue to use her normal medications as needed for your asthma. In the future make sure that you have all your appropriate medications even when you are going to work. Return here for any worsening chest tightness or shortness of breath fevers or chills. Otherwise call your primary physician for an appointment this week. Forms: Return to Work Referrals: RYAN JAMISON, THREAD MACHINE OPERATOR-C [Primary Care Provider] - Follow up as needed
== END 2018-07-22 13:16 | disposition home or self-care (01) ==
LOC: ER 10:24
DX: J45.909 Unspecified asthma, uncomplicated (principal); R06.02 Shortness of breath; R07.89 Other chest pain; R42 Dizziness and giddiness; F17.200 Nicotine dependence, unspecified, uncomplicated; Z87.01 Personal history of pneumonia (recurrent)
CPT/HCPCS: 36415; 71275; 80053; 84484; 85025; 99285

== ENCOUNTER 2018-09-28 12:06 | Emergency (ER) | payer MEDICAID ==
[2018-09-28] MEDS ORDERED: DICYCLOMINE HCL INJ 20 MG/2 ML AMPULE IM ONE (12:38)
--- NOTE | 2018-09-28 12:48 | ER Document Report ---
ED Medical Screen (RME) - General Chief Complaint: Epigastric Pain Stated Complaint: ABDOMINAL PAIN Time Seen by Provider: 09/28/18 12:32 Primary Care Provider: RYAN JAMISON FNP-C [Primary Care Provider] - Follow up as needed TRAVEL OUTSIDE OF THE [place] IN LAST 30 DAYS: No - HPI Notes: 09/28/18 12:48 Epigastric abdominal pain diarrhea patient drinking water in triage - Related Data Allergies/Adverse Reactions: morphine Adverse Reaction (Verified 09/28/18 12:07) nausea/vomiting peanut butter Adverse Reaction (Uncoded 09/28/18 12:07) Swelling of Throat Past Medical History - Social History Frequency of alcohol use: None Drug Abuse: None - Past Medical History Cardiac Medical History: Reports: Hx Hypercholesterolemia - History of Denies: Hx Congestive Heart Failure, Hx Coronary Artery Disease, Hx DVT, Hx Heart Attack, Hx Hypertension, Hx Pulmonary Embolism Pulmonary Medical History: Reports: Hx Asthma, Hx Bronchitis, Hx Pneumonia Denies: Hx COPD Neurological Medical History: Denies: Hx Cerebrovascular Accident, Hx Seizures Endocrine Medical History: Denies: Hx Diabetes Mellitus Type 1, Hx Diabetes Mellitus Type 2, Hx Hyperthyroidism, Hx Hypothyroidism Renal/ Medical History: Denies: Hx Peritoneal Dialysis GI Medical History: Denies: Hx Cirrhosis, Hx Gastroesophageal Reflux Disease, Hx Hepatitis Musculoskeltal Medical History: Denies Hx Arthritis Skin Medical History: Denies Hx Eczema, Denies Hx Psoriasis Psychiatric Medical History: Reports: Hx Anxiety Denies: Hx Depression Infectious Medical History: Denies: Hx Hepatitis Past Surgical History: Reports: Hx Mastectomy - double, with reconstruction, Hx Tubal Ligation - Immunizations Immunizations up to date: Yes Hx Diphtheria, Pertussis, Tetanus Vaccination: Yes History of Influenza Vaccine for 05/2017 - 10/2017 Season: No Physical Exam - Vital signs Vitals: Temp Pulse Resp BP Pulse Ox 98.9 F 104 H 18 113/94 H 97 09/28/18 12:10 09/28/18 12:10 09/28/18 12:10 09/28/18 12:10 09/28/18 12:10 Course - Vital Signs Vital signs: Temp Pulse Resp BP Pulse Ox 98.9 F 104 H 18 113/94 H 97 09/28/18 12:10 09/28/18 12:10 09/28/18 12:10 09/28/18 12:10 09/28/18 12:10 Doctor's Discharge - Discharge Referrals: RYAN JAMISON, ASSISTANT MANAGER BILINGUAL-C [Primary Care Provider] - Follow up as needed
--- NOTE | 2018-09-28 13:58 | RADIOLOGY REPORT (SQ) ---
EXAM DESCRIPTION: ACUTE ABDOMEN SERIES COMPLETED DATE/TIME: 09/28/2018 1:18 pm REASON FOR STUDY: abd pain COMPARISON: None. NUMBER OF VIEWS: Three views. TECHNIQUE: Frontal chest, supine abdomen and upright/decubitus abdomen radiographic images acquired. LIMITATIONS: None. FINDINGS: CHEST: Lungs clear of infiltrates. FREE AIR: None. No abnormal gas collections. BOWEL GAS PATTERN: Nonobstructive pattern. No dilated loops or air fluid levels. CALCIFICATIONS: No suspicious calcifications. HARDWARE: Left upper quadrant clips. SOFT TISSUES: No gross mass or suggestion of organomegaly. BONES: No acute fracture. No worrisome bone lesions. OTHER: No other significant finding. IMPRESSION: NO RADIOGRAPHIC EVIDENCE FOR ACUTE ABDOMINAL DISEASE. TECHNICAL DOCUMENTATION: JOB ID: [id number] [employer]- All Rights Reserved Reading location - IP/workstation name: [email or web address]
[2018-09-28 14:13] LABS: ABSOLUTE LYMPHOCYTES (AUTO) 2.2 10^3/uL (0.5-4.7); ABSOLUTE MONOCYTES (AUTO) 0.6 10^3/uL (0.1-1.4); BASOPHILS % (AUTO) 0.5 % (0-2); HEMATOCRIT 36.9 % (36.0-47.0); HEMOGLOBIN 12.6 g/dL (12.0-15.5); LYMPHOCYTES % (AUTO) 24.8 % (13-45); MEAN CORPUSCULAR HEMOGLOBIN 30.7 pg (27.0-33.4); MEAN CORPUSCULAR VOLUME 90 fl (80-97); MONOCYTES % (AUTO) 6.4 % (3-13); PLATELET COUNT 427 10^3/uL (150-450); RED BLOOD COUNT 4.09 10^6/uL (3.72-5.28); RED CELL DISTRIBUTION WIDTH 14.5 % (11.5-14.0); SEGMENTED NEUTROPHILS % (AUTO) 68.3 % (42-78); TOTAL CELLS COUNTED % (AUTO) 100 %; WHITE BLOOD COUNT 8.8 10^3/uL (4.0-10.5)
[2018-09-28 14:20] LABS: APPEARANCE,URINE CLOUDY; BILIRUBIN,URINE NEGATIVE (NEGATIVE); COLOR,URINE YELLOW; GLUCOSE, URINE NEGATIVE (NEGATIVE); KETONES,URINE TRACE mg/dL (NEGATIVE); LEUKOCYTE ESTERASE,URINE MODERATE (NEGATIVE); NITRITE,URINE POSITIVE (NEGATIVE); PROTEIN,URINE NEGATIVE (NEGATIVE); URINE SPECIFIC GRAVITY 1.018; UROBILINOGEN,URINE NEGATIVE mg/dL (<2.0)
[2018-09-28 14:24] LABS: ALANINE AMINOTRANSFERASE 24 U/L (9-52); ALBUMIN 4.5 g/dL (3.5-5.0); ALKALINE PHOSPHATASE 78 U/L (38-126); ANION GAP 11 (5-19); ASPARTATE AMINO TRANSFERASE 29 U/L (14-36); BILIRUBIN,DIRECT 0.2 mg/dL (0.0-0.4); BILIRUBIN,TOTAL 0.5 mg/dL (0.2-1.3); BLOOD UREA NITROGEN 9 mg/dL (7-20); CALCIUM 9.2 mg/dL (8.4-10.2); CARBON DIOXIDE 24 mmol/L (22-30); CHLORIDE 105 mmol/L (98-107); GLUCOSE 93 mg/dL (75-110); LIPASE 58.6 U/L (23-300); POTASSIUM 3.9 mmol/L (3.6-5.0); TOTAL PROTEIN 7.3 g/dL (6.3-8.2)
--- NOTE | 2018-09-28 15:59 | ER Document Report ---
ED GI/ - General Chief Complaint: Epigastric Pain Stated Complaint: ABDOMINAL PAIN Time Seen by Provider: 09/28/18 12:32 Primary Care Provider: RYAN JAMISON FNP-C [Primary Care Provider] - Follow up as needed Mode of Arrival: Ambulatory Information source: Patient Notes: 38-year-old female presented to ED for complaint of abdominal pain nausea vomiting and diarrhea. She was drinking in the emergency room when she was seen in the pit area. She has continued to drink fluids and is keeping them down. He states she had a fever yesterday but she does not have a fever and the emergency room. TRAVEL OUTSIDE OF THE [place] IN LAST 30 DAYS: No - HPI Patient complains to provider of: Abdominal pain, Diarrhea, Vomiting Onset: Yesterday Timing/Duration: Intermittent Quality of pain: Burning, Cramping Severity at maximum: Moderate Severity in ED: Moderate Pain Level: 3 Location: Epigastric, LUQ, LLQ Vaginal bleeding (Compared to normal period): None Associated symptoms: Diarrhea, Nausea, Vomiting Exacerbated by: Movement, Food Relieved by: Denies Similar symptoms previously: Yes Recently seen / treated by doctor: No - Related Data Allergies/Adverse Reactions: morphine Adverse Reaction (Verified 09/28/18 12:07) nausea/vomiting peanut butter Adverse Reaction (Uncoded 09/28/18 12:07) Swelling of Throat Past Medical History - General Information source: Patient - Social History Smoking Status: Current Some Day Smoker Cigarette use (# per day): Yes Smoking Education Provided: Yes - 4 minutes Frequency of alcohol use: None Drug Abuse: None Lives with: Family Family History: Reviewed & Not Pertinent, Other - Asthma Patient has suicidal ideation: No Patient has homicidal ideation: No - Past Medical History Cardiac Medical History: Reports: Hx Hypercholesterolemia - History of Pulmonary Medical History: Reports: Hx Asthma, Hx Bronchitis, Hx Pneumonia EENT Medical History: Reports: None Neurological Medical History: Reports: None Endocrine Medical History: Reports: None Renal/ Medical History: Reports: None Malignancy Medical History: Reports: None GI Medical History: Reports: None Musculoskeletal Medical History: Reports None Skin Medical History: Reports None Psychiatric Medical History: Reports: Hx Anxiety Denies: Hx Depression Traumatic Medical History: Reports: None Infectious Medical History: Reports: None Past Surgical History: Reports: Hx Mastectomy - double, with reconstruction, Hx Tubal Ligation - Immunizations Immunizations up to date: Yes Hx Diphtheria, Pertussis, Tetanus Vaccination: Yes Review of Systems - Review of Systems Constitutional: Fever, Recent illness EENT: No symptoms reported Cardiovascular: No symptoms reported Respiratory: No symptoms reported Gastrointestinal: Abdominal pain, Diarrhea, Vomiting Genitourinary: No symptoms reported Female Genitourinary: No symptoms reported Musculoskeletal: No symptoms reported Skin: No symptoms reported Hematologic/Lymphatic: No symptoms reported Neurological/Psychological: No symptoms reported -: Yes All other systems reviewed and negative Physical Exam - Vital signs Vitals: Temp Pulse Resp BP Pulse Ox 98.9 F 104 H 18 113/94 H 97 09/28/18 12:10 09/28/18 12:10 09/28/18 12:10 09/28/18 12:10 09/28/18 12:10 Interpretation: Normal - General General appearance: Appears well, Alert - HEENT Head: Normocephalic, Atraumatic Eyes: Normal Pupils: PERRL - Respiratory Respiratory status: No respiratory distress. No: Respiratory distress Chest status: Nontender. No: Tender Breath sounds: Normal. No: Decreased air movement, Nonproductive cough, Productive cough, Rales, Rhonchi, Stridor, Wheezing Chest palpation: Normal - Cardiovascular Rhythm: Regular Heart sounds: Normal auscultation Murmur: No - Abdominal Inspection: Normal Distension: No distension Bowel sounds: Normal Tenderness: Tender - Generalized Organomegaly: No organomegaly - Back Back: Normal, Nontender - Extremities General upper extremity: Normal inspection, Nontender, Normal color, Normal ROM, Normal temperature General lower extremity: Normal inspection, Nontender, Normal color, Normal ROM, Normal temperature, Normal weight bearing. No: Nora's sign - Neurological Neuro grossly intact: Yes Cognition: Normal Orientation: AAOx4 Milena Coma Scale Eye Opening: Spontaneous Milena Coma Scale Verbal: Oriented Milena Coma Scale Motor: Obeys Commands Ramer Coma Scale Total: 15 Speech: Normal Motor strength normal: LUE, RUE, LLE, RLE Sensory: Normal - Psychological Associated symptoms: Normal affect, Normal mood - Skin Skin Temperature: Warm Skin Moisture: Dry Skin Color: Normal Course - Re-evaluation Re-evalutation: 09/29/18 02:02 X-rays and labs discussed with patient. Treatment patient was treated with antibiotics for her urinary tract infection and instructed to please follow-up with her primary doctor in the next 5-7 days to ensure that the UTI relief. Patient was given a copy of her labs and x-ray reports to take to her primary doctor. Patient verbalized understanding and agreeable treatment plan. - Vital Signs Vital signs: Temp Pulse Resp BP Pulse Ox 99.3 F 95 18 109/66 98 09/28/18 16:03 09/28/18 16:03 09/28/18 12:10 09/28/18 16:03 09/28/18 16:03 - Laboratory Result Diagrams: 09/28/18 13:28 09/28/18 13:28 Laboratory results interpreted by me: 09/28/18 09/28/18 13:28 13:33 RDW 14.5 H Urine Ketones TRACE H Urine Blood MODERATE H Urine Nitrite POSITIVE H Ur Leukocyte Esterase MODERATE H - Diagnostic Test Radiology reviewed: Image reviewed, Reports reviewed Discharge - Discharge Clinical Impression: Abdominal pain Qualifiers: Abdominal location: upper abdomen, unspecified Qualified Code(s): R10.10 - Upper abdominal pain, unspecified Diarrhea Qualifiers: Diarrhea type: unspecified type Qualified Code(s): R19.7 - Diarrhea, unspecified UTI (urinary tract infection) Qualifiers: Urinary tract infection type: site unspecified Hematuria presence: with hematuria Qualified Code(s): N39.0 - Urinary tract infection, site not specified Condition: Stable Disposition: HOME, SELF-CARE Additional Instructions: ABDOMINAL PAIN: There are many causes of abdominal pain. Pain can mean a serious problem requiring surgery (such as appendicitis). It can also be an innocent problem that goes away on its own (such as a viral infection). Often, time must pass to determine the cause of pain. The physician does not feel that hospitalization is necessary, at present. Things may change within the next 24 hours. Call the doctor or come back for re- examination if any problems occur, such as: (1) Pain that becomes more severe, steady, or becomes concentrated in one specific area. Also, pain that is more severe with movement or coughing. (2) Vomiting that persists or becomes more frequent. (3) Blood in the vomitus, urine, or bowel movements. Blood in the stool may have a tarry or black appearance. (4) Shaking chills or fever greater than 100 degrees F. (5) The abdomen becomes more distended or swollen. (6) Bowel movements cease. (7) Failure to improve as expected. URINARY TRACT INFECTION: Your evaluation indicates that you have a urinary tract infection. This is due to germs growing in the bladder. This is a common problem. This infection usually responds quickly to antibiotics. Your antibiotic should be taken exactly as prescribed. Drink plenty of fluids -- three to four quarts a day. Occasionally, a bladder anesthetic will be prescribed to help stop the feeling of urgency until the antibiotic has a chance to clear the infection. This may cause your urine to be dark orange. Certain urine infections require a culture. If the doctor obtained a culture, the results will be back in two days. You should call to see if a change in treatment is needed. A repeat urinalysis after you finish treatment is often recommended. The physician will let you know if further testing is required. Call the doctor if you develop fever, chills, flank pain, inability to urinate, or blood in the urine. VOMITING: Vomiting (or nausea without vomiting) can be caused by many other different problems. It can mean that something's wrong with the stomach, such as ulcers or inflammation or the intestinal tract, such as appendicitis. But it can also be a symptom of a problem that has nothing to do with the stomach or intestines. Vo miting is common with severe headaches, earaches, tonsillitis, and kidney infections, etc. We see it with pneumonia or heart attacks. Drugs can cause nausea and vomiting. Many abdominal problems cause vomiting; for example, gallstones, kidney stones, pancreatitis, and intestinal obstruction (blocked bowels). In most cases, curing the vomiting depends on fixing the problem that caused it. For temporary relief, we may use an anti-nausea medicine. For home use, we can prescribe suppositories, chewable pills, pills that dissolve in the mouth, or liquid anti-nausea drugs. If the vomiting seems to be caused by a problem in the stomach, acid-suppressing drugs may be prescribed as well. It's important to avoid dehydration. Sip small amounts of clear liquids (soft drinks, tea, broth, etc) . Try to take fluids frequently even if you are vomiting to prevent dehydration. Take increasing amounts of fluid and when liquids are being consumed successfully, advance to small amounts of bland food (toast, soups, mashed potatoes, etc.) until you are able to resume a regular diet. Avoid aspirin, tobacco, and alcohol. If the vomiting worsens, if the problem that's making you vomit worsens, or if there's evidence of bleeding in the stomach (such as black, tarry stool, or bloody or black vomit), you should return immediately. Also, return if abdominal pain worsens or becomes localized to one area or you develop high fever. Call your doctor if you aren't improved in 24 hours. DIARRHEA, NON-SPECIFIC: Diarrhea means frequent, watery stools. There are many causes. Any problem that keeps the intestinal tract from absorbing water from the stool can lead to diarrhea. A sudden new diarrhea problem is usually caused by a virus, food sensitivity, toxic bacteria, or drugs. In this case, we expect the problem to go away soon. Testing is done only if you seem seriously ill from the diarrhea. If you have chronic diarrhea, or diarrhea that keeps coming back, we need t o find out why. Chronic diarrhea can be due to inflammation of the bowels such as Crohn's disease or ulcerative colitis, food sensitivity such as intolerance to lactose or wheat protein, irritable bowel syndrome, and other problems. If your diarrhea is a significant problem but it's not clear why you have it, we'll refer you to a specialist for further testing. During an episode of diarrhea, drink small amounts (two to six ounces) of clear liquids (soft drinks, sport drinks, herb teas, broth, etc). Take fluids frequently to prevent dehydration. It's usually not a problem to take mild anti- diarrhea medication such as Kaopectate or Pepto-Bismol. As the diarrhea eases, advance to small amounts of bland food (mashed potato, toast) for 24 hours. Call the physician if blood appears in your vomit or stool, if vomiting lasts longer than 24 hours, if the abdominal pain worsens or becomes localized to one area, if you develop high fever, or if you become lightheaded and weak. VIRAL SYNDROME: The physician has diagnosed a viral infection. Viruses not only cause "colds," but can cause many different symptoms including generalized aching, fever, headache, cough, diarrhea, nausea, vomiting, and fatigue. The treatment, for the most part, is simply relief of symptoms. This means that antibiotics are usually not given. Rest, fluids, pain medications and, occasionally, medication for the specific symptoms that are most bothersome will be prescribed. Use good handwashing to avoid passing the virus to others. Shared toys should be cleaned with disinfectant. Clean the toilets, sinks, and counter surfaces in bathrooms. Launder clothing in hot water. Contact the physician if you develop any new or unusual symptoms such as severe headache, stiff neck, high fever, chest pain, productive cough, or shortness of breath. You should be rechecked if you don't see marked improvement within seven to 10 days. ANTINAUSEA MEDICATION: You have been given a medication to suppress nausea and vomiting. This type of medication can be given as a shot, pill, or suppository. It will usually last for many hours. Pills and shots usually last six to eight hours. For the typical illness, only one or two doses of the medication may be necessary. Mild lightheadedness may occur. This type of medicine can cause drowsiness. Do not drive or operate dangerous machinery while under its influence. Do not mix with alcohol. See your doctor at once if you have muscle spasms or tightness, or uncontrollable motions (particularly of the neck, mouth, or jaw). Persistent vomiting or severe lightheadedness should also be evaluated by the physician. AMOXICILLIN: Amoxicillin is a member of the penicillin family. It covers the germs likely to cause ear, bronchial, and urinary infections better than plain penicillin. Amoxicillin can be taken without regard to meals. Nausea after taking the medication is rare, but can occur. Diarrhea can occur, particularly in small children. Vaginal yeast infections and oral thrush in infants are also common. Contact your physician if these problems occur. Allergy to penicillins is common. If you have had an allergic reaction to any drug of the penicillin family, you should never take any other penicillin. Notify your doctor at once if you develop hives, itching, swelling, faintness, or shortness of breath. Less serious side effects can include nausea or diarrhea. URINARY ANESTHETIC AGENT: You have been given a medication (Pyridium) for urinary tract discomfort. This medicine numbs the lining of the bladder and urethra, resulting in less pain, burning, and urgency. You may take it as needed, according to instructions. When the symptoms resolve, you can stop this medication (be sure to continue any other medications the doctor has given you). This medicine turns the urine a dark orange. It may stain underwear. Occasionally, it can cause nausea. Return for evaluation if there are any unexpected effects, such as itching, hives, or shortness of breath. FOLLOW-UP CARE: If you have been referred to a physician for follow-up care, call the physicians office for an appointment as you were instructed or within the next two days. If you experience worsening or a significant change in your symptoms, notify the physician immediately or return to the Emergency Department at any time for re-evaluation. Prescriptions: Ondansetron [Zofran Odt 4 mg Tablet] 1 - 2 tab PO Q4HP PRN #10 tab.rapdis PRN Reason: Amoxicillin Trihydrate [Amoxil 400 mg/5 mL Suspension] 10 ml PO TID 7 Days #1 bottle Forms: Elevated Blood Pressure, Smoking Cessation Education, Return to Work Referrals: RYAN JAMISON, [employer]PERATOR-C [Primary Care Provider] - Follow up as needed
[2018-09-28 16:05] VITALS: BP 109/66
--- NOTE | 2018-09-28 17:15 | EKG REPORT ---
SEVERITY:- BORDERLINE ECG - SINUS RHYTHM LOW VOLTAGE THROUGHOUT BORDERLINE T ABNORMALITIES, ANTERIOR LEADS : Confirmed by: Isacc Tang MD 28-Sep-2018 17:14:33
== END 2018-09-28 16:29 | disposition home or self-care (01) ==
LOC: ER 12:06
DX: N39.0 Urinary tract infection, site not specified (principal); R10.11 Right upper quadrant pain; R10.12 Left upper quadrant pain; R31.9 Hematuria, unspecified; R10.13 Epigastric pain; R11.2 Nausea with vomiting, unspecified; R19.7 Diarrhea, unspecified; R10.817 Generalized abdominal tenderness; J45.909 Unspecified asthma, uncomplicated; F17.210 Nicotine dependence, cigarettes, uncomplicated; Z71.6 Tobacco abuse counseling
CPT/HCPCS: 93005; 99406; 99284; 96372; 36415; 87086; 83690; 85025; 81025; 87088; 80053; 81001; 74022; 93010; J0500